=== PATIENT | female | born 1950 | race Caucasian/White ===

== ENCOUNTER 2016-11-10 11:22 | Outpatient (CLI) | payer MEDICARE, OTHER | END 2016-11-10 11:23 | disposition home or self-care (01) | DX: G47.33 Obstructive sleep apnea (adult) (pediatric) (principal) | CPT/HCPCS: 99213; G0463 ==

== ENCOUNTER 2017-06-03 08:43 | Day surgery (SDC) | payer MEDICARE, OTHER ==
[~2017-06-03 08:43] MED LIST: BRIMONIDINE 0.2% OPHTH DROPS 5 ML ONE; CYCLOPENTOLATE 1% OPHTH DROPS 2 ML ONE; KETOROLAC 0.45% OPHTH DROPS ONE; PHENYLEPHRINE 2.5% OPHTH 2 ML DROPS ONE; PROPARACAINE 0.5% OPHTH DROPS 15 ML ONE
[2017-06-03] MEDS ORDERED: LACTATED RINGERS 500 ML IV ONE (09:05)
[2017-06-03] MEDS ORDERED: PROPARACAINE 0.5% OPHTH DROPS 15 ML OPTH ONE ×2 (09:15→10:54)
[2017-06-03] MEDS ORDERED: PHENYLEPHRINE 2.5% OPHTH 2 ML DROPS OPTH ONE (09:15)
[2017-06-03] MEDS ORDERED: KETOROLAC 0.45% OPHTH DROPS OPTH ONE (09:15)
[2017-06-03] MEDS ORDERED: CYCLOPENTOLATE 1% OPHTH DROPS 2 ML OPTH ONE (09:15)
[2017-06-03] MEDS ORDERED: EPINEPHrine 1 MG/ML AMP IVP ONE (10:53)
[2017-06-03] MEDS ORDERED: BRIMONIDINE 0.2% OPHTH DROPS 5 ML OPTH ONE (10:53)
[2017-06-03] MEDS ORDERED: CHONDR SULF/HYALURONATE SYRINGE IO ONE (10:54)
[2017-06-03] MEDS ORDERED: BSS/LIDOCAINE/EPINEPHRINE 1 ML SYRINGE IO ONE ×2 (10:54)
[2017-06-03] MEDS ORDERED: TIMOLOL 0.5% OPHTH DROPS OPTH ONE (10:54)
[2017-06-03] MEDS ORDERED: TRIAMCIN/MOXIFLOX/VANCO 1 ML VIAL IO ONE ×2 (10:55)
[2017-06-03 11:40] VITALS: BP 132/82
--- NOTE | 2017-06-03 13:49 | OPERATIVE REPORT ---
DATE OF SURGERY: 06/03/2017 00:00:00 PREOPERATIVE DIAGNOSIS: Significant cataract, right eye. This is her first cataract surgery. POSTOPERATIVE DIAGNOSIS: Significant cataract, right eye. This is her first cataract surgery. NAME OF PROCEDURE: Phacoemulsification with posterior chamber intraocular lens implant, right eye. SURGEON: Madhu Adam M.D. ANESTHESIA: Monitored anesthesia care. COMPLICATIONS: None. OPERATIVE INDICATIONS: This is a 66-year-old woman with progressive vision loss in the right eye due to 2+ nuclear sclerotic and 2+ cortical cataract. Best corrected visual acuity was 20/25, unsure what the glare vision was - it was not recorded. Indications for surgery were overall decrease in vision, difficulty reading, difficulty seeing words, closed captions, or game scores on TV, difficulty seeing street signs, difficulty driving in low light or at night , difficulty driving at night because of headlights from other vehicles, and difficulty with bright lights or glare in any situation. She was consented at length concerning risks and benefits of cataracts, after which she expressed the desire to proceed with surgery. OPERATIVE PROCEDURE: The patient was taken into OR #2 and placed under monitored anesthesia care. A surgical time-out was conducted, confirming correct patient, correct procedure, and correct surgical site. She was given topical anesthesia and then prepped and draped in the usual sterile fashion. The eye was entered at the 12 and 9 o'clock positions. Intracameral Shugarcaine was injected into the anterior chamber followed by Viscoat. A continuous curvilinear capsulorrhexis was performed. The nucleus was hydrodissected and phacoemulsified. The cortex was evacuated using automated infusion and aspiration. Provisc was injected in the capsular bag, and a 09.0 diopter intraocular lens was inserted into the bag. Approximately 0.7 mL of a mixture of triamcinolone, moxifloxacin, and vancomycin was injected subconjunctivally in the superior quadrant for infection and inflammation prophylaxis. I and A was used to evacuate the viscoelastic material. The eye was inflated to physiologic pressure using balanced salt solution and found to be watertight. The patient was taken from the operating room in good condition and given postoperative instructions. JOB #: [id number] EXT JOB #:[id number] [facility]
== END 2017-06-03 08:44 | disposition home or self-care (01) ==
LOC: SDS 08:43
PROVIDERS: ATTEND Ophthalmology
PROC: 08RJ3JZ Replacement of Right Lens with Synthetic Substitute, Percutaneous Approach (ICD-10-PCS; principal; 2017-06-03 10:00)
DX: H25.811 Combined forms of age-related cataract, right eye (principal); E03.9 Hypothyroidism, unspecified; G47.33 Obstructive sleep apnea (adult) (pediatric); Z88.5 Allergy status to narcotic agent
CPT/HCPCS: 66984; A9270; J3490

== ENCOUNTER 2017-06-17 09:24 | Day surgery (SDC) | payer MEDICARE, OTHER ==
[~2017-06-17 09:24] MED LIST changes: +ACETYLCHOLINE 20 MG/2 ML KIT IO ONE; +TIMOLOL 0.5% OPHTH DROPS ONE; +TRIAMCINOLONE PF 40 MG/ML VIAL ONE
[2017-06-17] MEDS ORDERED: LACTATED RINGERS 500 ML IV ONE (09:32)
[2017-06-17] MEDS ORDERED: PROPARACAINE 0.5% OPHTH DROPS 15 ML OPTH ONE ×2 (09:35→10:21)
[2017-06-17] MEDS ORDERED: PHENYLEPHRINE 2.5% OPHTH 2 ML DROPS OPTH ONE (09:35)
[2017-06-17] MEDS ORDERED: CYCLOPENTOLATE 1% OPHTH DROPS 2 ML OPTH ONE (09:35)
[2017-06-17] MEDS ORDERED: KETOROLAC 0.45% OPHTH DROPS OPTH ONE (09:35)
[2017-06-17] MEDS ORDERED: BRIMONIDINE 0.2% OPHTH DROPS 5 ML OPTH ONE (10:21)
[2017-06-17] MEDS ORDERED: TIMOLOL 0.5% OPHTH DROPS OPTH ONE (10:21)
[2017-06-17] MEDS ORDERED: BSS/LIDOCAINE/EPINEPHRINE 1 ML SYRINGE IO ONE ×2 (10:21)
[2017-06-17] MEDS ORDERED: EPINEPHrine 1 MG/ML AMP IVP ONE (10:21)
[2017-06-17] MEDS ORDERED: CHONDR SULF/HYALURONATE SYRINGE IO ONE (10:21)
[2017-06-17] MEDS ORDERED: TRIAMCIN/MOXIFLOX/VANCO 1 ML VIAL IO ONE ×2 (10:21)
[2017-06-17] MEDS ORDERED: LIDOCAINE-MPF 2% 5 ML VIAL IM ONE (10:24)
[2017-06-17] MEDS ORDERED: PROPOFOL 200 MG/20 ML VIAL IVP ONE (10:24)
[2017-06-17] MEDS ORDERED: MIDAZOLAM 2 MG/2 ML VIAL IVP ONE (10:24)
[2017-06-17 11:08] VITALS: BP 133/71
--- NOTE | 2017-06-17 11:19 | OPERATIVE REPORT ---
DATE OF SURGERY: 06/17/2017 00:00:00 PREOPERATIVE DIAGNOSIS: Visually significant cataract, left eye. Cataract surgery was performed on right eye on 03 June 2017. POSTOPERATIVE DIAGNOSIS: Visually significant cataract, left eye. Cataract surgery was performed on t right eye on 03 June 2017. NAME OF PROCEDURE: Phacoemulsification with posterior chamber intraocular lens implant, left eye. SURGEON: Madhu Adam MD ANESTHESIA: Monitored anesthesia care. COMPLICATIONS: None. OPERATIVE INDICATIONS: This is a 66-year-old woman with progressive vision loss in the left eye due t o 2+ nuclear sclerotic and 2+ cortical cataract. Best corrected visual acuity was 20/25 with glare to 20/40 in the left eye. Indications for surgery were overall decrease in vision, difficulty seeing wo rds on a computer screen, difficulty reading, difficulty seeing street signs, difficulty driving in l ow light or at night, difficulty driving at night because of headlights from other vehicles, and diff iculty with glare or bright lights in any situation. She was consented at length concerning the risks and benefits of cataract surgery after which she expressed a desire to proceed with surgery. OPERATIVE PROCEDURE: The patient was taken into OR #2 and placed under monitored anesthesia care. A s urgical time-out was conducted confirming correct patient, correct procedure and correct surgical sit e. She was given topical anesthesia and then prepped and draped in the usual sterile fashion. The eye was entered at the 6- and 3 o'clock positions. Intracameral Shugarcaine was injected into the anteri or chamber followed by Viscoat. A continuous tear curvilinear capsulorrhexis was performed. The nucle us was hydrodissected and phacoemulsified. The cortex was evacuated using automated infusion and aspi ration. Provisc was injected in the capsular bag and a 10.0 diopter intraocular lens was inserted int o the bag. Approximately 0.7 mL of a mixture of triamcinolone, moxifloxacin, and vancomycin was injec jeffry subconjunctivally in the superior quadrant for infection and inflammation prophylaxis. I/A was us ed to evacuate the viscoelastic material. The eye was inflated to physiologic pressure using balanced salt solution and found to be watertight. The patient was taken from the operating room in good cond ition and given postoperative instructions. JOB #: [id number] EXT JOB #:[id number]
== END 2017-06-17 09:25 | disposition home or self-care (01) ==
LOC: SDS 09:24
PROVIDERS: ATTEND Ophthalmology
PROC: 08RK3JZ Replacement of Left Lens with Synthetic Substitute, Percutaneous Approach (ICD-10-PCS; principal; 2017-06-17 10:30)
DX: H25.812 Combined forms of age-related cataract, left eye (principal); E03.9 Hypothyroidism, unspecified; G47.33 Obstructive sleep apnea (adult) (pediatric); I10 Essential (primary) hypertension; Z88.5 Allergy status to narcotic agent
CPT/HCPCS: 66984; A9270; J3300; J3490; V2632

== ENCOUNTER 2017-07-20 09:30 | Outpatient (CLI) | payer MEDICARE, OTHER ==
[2017-07-20 10:09] LABS: ALBUMIN/GLOBULIN RATIO 1.2 (1.0-2.2); BILIRUBIN,TOTAL 0.9 mg/dL (0.2-1.0); BUN - BLOOD UREA NITROGEN 12 mg/dL (6-20); CALCIUM 9.2 mg/dL (8.5-10.3); CARBON DIOXIDE - CO2 27 mmol/L (21-32); CHLORIDE 102 mmol/L (101-111); CHOL/HDL RATIO 4.9 (<4.4); CHOLESTEROL 225 mg/dL; CREATININE 0.6 mg/dL (0.4-1.0); GFR - MDRD 100 (>89); GLUCOSE 111 mg/dL (70-100); HDL CHOLESTEROL 46 mg/dL; LDL/HDL RATIO 3.1 (<4.4); POTASSIUM 3.6 mmol/L (3.5-5.0); SODIUM 139 mmol/L (135-145); TOTAL PROTEIN 7.1 g/dL (6.7-8.2); TRIGLYCERIDES 181 mg/dL; VLDL CHOLESTEROL 36 mg/dL
== END 2017-07-20 09:31 | disposition home or self-care (01) ==
LOC: LAB 09:30
PROVIDERS: ATTEND Physician Assistant Medical
DX: E78.5 Hyperlipidemia, unspecified (principal); E03.9 Hypothyroidism, unspecified; Z51.81 Encounter for therapeutic drug level monitoring; Z79.899 Other long term (current) drug therapy
CPT/HCPCS: 36415; 80053; 80061; 84443

== ENCOUNTER 2017-07-20 09:49 | Outpatient (CLI) | payer MEDICARE, OTHER ==
--- NOTE | 2017-07-20 17:48 | XRAY Report ---
BILATERAL KNEES: 07/20/2017 HISTORY: Pain. COMPARISON: None. FINDINGS: LEFT KNEE: Soft tissue surgical clips. Equivocal degenerative narrowing of the medial knee joint. Lateral knee joint well maintained with early spurring. Patellofemoral degenerative change. No evid ence of fracture, malalignment, or joint effusion. RIGHT KNEE: Mild degenerative medial knee joint space narrowing with spurring. Mild lateral knee kemar int spurring. Spurring of the articular surface of the patella. No fracture, malalignment, joint ef fusion, or joint destruction. IMPRESSION: BILATERAL KNEE DEGENERATIVE CHANGE WITHOUT SUPERIMPOSED ACUTE FINDINGS. JOB #: [id number] EXT JOB #:[id number]
--- NOTE | 2017-07-20 17:51 | XRAY Report ---
LUMBAR SPINE, THREE VIEWS: 07/20/2017 HISTORY: Back pain. The lumbar vertebral bodies are normally aligned. There is mild height loss of T11, T12 and possibly L1. Remaining vertebral bodies height well maintained. There is scattered multilevel degenerative disk space narrowing most marked L4- 5 and L5-S1. Degenerative facet joint arthropathy is present, most marked lower lumbar levels. Surgical clips right upper quadrant. IMPRESSION: MULTILEVEL DEGENERATIVE CHANGE LUMBAR SPINE. LUMBAR SPINAL STENOSIS MAY BE PRESENT, BUT COULD BE BEST ASSESSED BY MRI. FINDINGS ARE SIMILAR TO THE REFORMATTED IMAGES OF THE CT SCAN ABDOMEN AND PELVIS FROM 08/06/2016. JOB #: [id number] EXT JOB #: [id number] [facility]
== END 2017-07-20 09:50 | disposition home or self-care (01) ==
LOC: DI 09:49
PROVIDERS: ATTEND Physician Assistant Medical
DX: M51.36 Other intervertebral disc degeneration, lumbar region (principal); E78.5 Hyperlipidemia, unspecified; E03.9 Hypothyroidism, unspecified; Z51.81 Encounter for therapeutic drug level monitoring; Z79.899 Other long term (current) drug therapy
CPT/HCPCS: 36415; 72100; 80053; 80061; 84443

== ENCOUNTER 2017-11-06 23:10 | Observation (INO) | payer MEDICARE, OTHER ==
[2017-11-06] MEDS ORDERED: ASPIRIN 325 MG TABLET PO STA (23:25)
[2017-11-06] MEDS ORDERED: NITROGLYCERIN SL 0.4 MG TABLET SL STA (23:25)
[2017-11-06 23:37] LABS: BASOPHILS # (AUTO) 0.1 10^3/uL (0.0-0.1); EOSINOPHILS # (AUTO) 0.3 10^3/uL (0.0-0.7); EOSINOPHILS % (AUTO) 2.9 %; HGB - HEMOGLOBIN 13.2 g/dL (12.0-16.0); LYMPHOCYTES # (AUTO) 4.2 10^3/uL (1.5-3.5); MEAN CORPUSCULAR HEMOGLOBIN 32.1 pg (27.0-31.0); MEAN CORPUSCULAR HGB CONC 34.1 g/dL (32.0-36.0); MEAN CORPUSCULAR VOLUME 94.1 fL (81.0-99.0); MEAN PLATELET VOLUME 7.6 fL (7.9-10.8); MONOCYTES # (AUTO) 0.9 10^3/uL (0.0-1.0); MONOCYTES % (AUTO) 10.2 %; NEUTROPHILS # (AUTO) 3.5 10^3/uL (1.5-6.6); NEUTROPHILS % (AUTO) 38.9 %; PLT - PLATELET COUNT 305 10^3/uL (130-450); RED BLOOD COUNT 4.13 10^6/uL (4.20-5.40); RED CELL DISTRIBUTION WIDTH 14.1 % (12.0-15.0); WHITE BLOOD COUNT 8.9 x10^3/uL (4.8-10.8)
[2017-11-06 23:49] LABS: ALBUMIN/GLOBULIN RATIO 1.3 (1.0-2.2); BILIRUBIN,TOTAL 0.3 mg/dL (0.2-1.0); CALCIUM 9.3 mg/dL (8.5-10.3); CREATININE 0.7 mg/dL (0.4-1.0); PHOSPHORUS 3.7 mg/dL (2.5-4.6); TOTAL PROTEIN 7.2 g/dL (6.7-8.2)
[2017-11-07] MEDS ORDERED: POTASSIUM CHLORIDE 20 MEQ TABLET PO STA (00:02)
[2017-11-07] MEDS ORDERED: POTASSIUM CHLOR 10 MEQ/100 ML 10 MEQ/100 ML BAG IV ONE (00:02)
--- NOTE | 2017-11-07 00:13 | XRAY Report ---
EXAM: CHEST RADIOGRAPHY EXAM DATE: 11/06/2017 11:56 PM. CLINICAL HISTORY: Fever, hx of lung failure. COMPARISON: None. TECHNIQUE: 1 view. FINDINGS: Lungs/Pleura: No focal opacities evident. No pleural effusion. No pneumothorax. Mediastinum: Within exam limitations, the cardiomediastinal contour is normal. Other: None. IMPRESSION: No acute cardiopulmonary abnormality. [facility] Referring Provider Line: [phone] SITE ID: [id number]
--- NOTE | 2017-11-07 00:33 | ED Physician Documentation ---
PD HPI CHEST PAIN - Stated complaint Stated Complaint: CHEST PAIN - Chief complaint Chief Complaint: Cardiac - History obtained from History obtained from: Patient, Family - History of Present Illness Timing - onset: Today Timing - onset during: Rest Timing - details: Abrupt onset, Still present Quality: Pressure Location: Left chest Radiation: Jaw, Neck Improved by: Rest Associated symptoms: Diaphoresis, Nausea, Vomiting. No: Shortness of air, Feeling faint / dizzy Similar symptoms before: No diagnosis, Has not had sx before Recently seen: Not recently seen - Additional information Additional information: Patient is a 67 year old female with a history of obesity, and fibromyalgia who is presenting to the emergency department for chest pain. Patient states that she was sitting on her couch when she developed left sided chest pain/pressure. Patient states that the pain radiated down her left arm and into her jaw. Patient was diaphoretic and nauseated with the pain. patient has never had these symptoms before. Review of Systems Constitutional: reports: Sweats. denies: Fever, Chills Eyes: denies: Decreased vision, Photophobia Ears: denies: Ear pain, Drainage/discharge Nose: denies: Congestion Throat: denies: Sore throat Cardiac: reports: Chest pain / pressure. denies: Palpitations Respiratory: denies: Cough, Wheezing GI: reports: Nausea, Vomiting : denies: Dysuria, Frequency Musculoskeletal: reports: Extremity pain. 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 - Present Medications Home Medications: Ambulatory Orders Medication Instructions Recorded Confirmed Acetaminophen [Tylenol Extra 1,000 mg PO Q6-8H PRN 04/18/13 11/07/17 Strength] Beta-Carotene(A) W-C & E/Zn/Se 1 each PO DAILY 04/18/13 11/07/17 [Antioxidant Tablet] Cholecalciferol (Vitamin D3) 8,000 unit PO DAILY 04/18/13 11/07/17 [Vitamin D3] Duloxetine HCl [Cymbalta] 30 mg PO DAILY 04/18/13 11/07/17 Ibuprofen [Motrin] 600 mg PO Q6H PRN 04/18/13 11/07/17 Levothyroxine Sodium [Levoxyl] 137 mcg PO DAILY 04/18/13 11/07/17 Magnesium 200 mg PO DAILY 04/18/13 11/07/17 Multivitamin [Multivitamins] 1 each PO DAILY 04/18/13 11/07/17 [place]-3 Fatty Acids/Fish Oil 1 each PO DAILY 04/18/13 11/07/17 [[place] 3 1,000 mg Softgel] Triamterene/Hydrochlorothiazid 37.5 each PO DAILY 04/18/13 11/07/17 [Triamterene-Hctz 37.5-25 mg Tb] Ubidecarenone [Coq-10] 200 mg PO DAILY 04/18/13 11/07/17 - Allergies Allergies/Adverse Reactions: Allergies Allergy/AdvReac Type Severity Reaction Status Date / Time codeine [Codeine] Allergy Intermediate Nausea Verified 11/06/17 23:17 - Social History Does the pt smoke?: No Smoking Status: Never smoker Does the pt drink ETOH?: No Does the pt have substance abuse?: No - Immunizations Immunizations are current?: Yes PD ED PE NORMAL - Vitals Vital signs reviewed: Yes - General General: Alert and oriented X 3, Well developed/nourished - HEENT HEENT: Atraumatic, Moist mucous membranes - Neck Neck: Supple, no meningeal sign, No JVD - Cardiac Cardiac: RRR, No murmur - Respiratory Respiratory: No respiratory distress, Clear bilaterally - Abdomen Abdomen: Soft, Non tender, Non distended - Derm Derm: Normal color - Extremities Extremities: No deformity, Normal ROM s pain, No calf tenderness / cord - Neuro Neuro: Alert and oriented X 3, No motor deficit, No sensory deficit, Normal speech Eye Opening: Spontaneous Motor: Obeys Commands Verbal: Oriented GCS Score: 15 PD ED PE EXPANDED - General General: Alert - Derm Derm: Diaphoretic Results - Vitals Vitals: Vital Signs - 24 hr 11/06/17 11/06/17 11/06/17 23:15 23:49 23:58 Temperature 367 C H Heart Rate 66 64 52 L Respiratory 20 18 18 Rate Blood Pressure 178/100 H 136/81 H 141/80 H O2 Saturation 97 100 100 11/07/17 11/07/17 00:12 00:51 Temperature Heart Rate 62 66 Respiratory 18 18 Rate Blood Pressure 118/65 156/91 H O2 Saturation 100 100 Oxygen O2 Source Room air - EKG (time done) 2321 Rate: Rate (enter#) (68) Rhythm: NSR [place]: LAD QRS: LVH, Poor R wave progression Ischemia: ST depression Compare to prior EKG: Old EKG unavailable - Labs Labs: Laboratory Tests 11/06/17 11/06/17 11/06/17 23:25 23:25 23:25 WBC 8.9 RBC 4.13 L Hgb 13.2 Hct 38.9 MCV 94.1 MCH 32.1 H MCHC 34.1 RDW 14.1 Plt Count 305 MPV 7.6 L Neut # 3.5 Lymph # 4.2 H [place] # 0.9 Eos # 0.3 Baso # 0.1 Absolute Nucleated RBC 0.01 Nucleated RBC % 0.1 Sodium 140 Potassium 2.9 L Chloride 100 L Carbon Dioxide 29 Anion Gap 11.0 BUN 16 Creatinine 0.7 Estimated GFR (MDRD) 83 L Glucose 125 H Calcium 9.3 Phosphorus 3.7 Magnesium 2.0 Total Bilirubin 0.3 AST 34 ALT 42 Alkaline Phosphatase 75 Troponin I < 0.04 B-Natriuretic Peptide Total Protein 7.2 Albumin 4.0 Globulin 3.2 Albumin/Globulin Ratio 1.3 Lipase 25 TSH 11/06/17 11/06/17 23:25 23:25 WBC RBC Hgb Hct MCV MCH MCHC RDW Plt Count MPV Neut # Lymph # [place] # Eos # Baso # Absolute Nucleated RBC Nucleated RBC % Sodium Potassium Chloride Carbon Dioxide Anion Gap BUN Creatinine Estimated GFR (MDRD) Glucose Calcium Phosphorus Magnesium Total Bilirubin AST ALT Alkaline Phosphatase Troponin I B-Natriuretic Peptide 52 Total Protein Albumin Globulin Albumin/Globulin Ratio Lipase TSH 4.04 - Rads (name of study) chest x-ray Radiology: Final report received (no acute abnormality) PD MEDICAL DECISION MAKING - ED course Complexity details: reviewed old records, reviewed results, re-evaluated patient , considered differential, d/w patient, d/w family, d/w otm consultant ED course: patient was seen and examined at bedside. IV access was gained, labs were drawn. ekg was performed and showed lvh and st depression. Patient was treated with the rest of the aspirin (161mg) nitro was ordered for the patient which helped the pain. Patient's HEART score was elevated at 5 and required further care. Hospitalist was contacted and the case was discussed with her. patient was placed in observation for further care. Departure - Departure Disposition: ED Place in Observation Clinical Impression: Chest pain Condition: Stable
[2017-11-07] MEDS ORDERED: NITROGLYCERIN 2% PASTE TOP STA (00:34)
[2017-11-07] MEDS ORDERED: SODIUM CHLORIDE FLUSH 0.9% 10 ML SYRINGE IVP PRN (00:38)
[2017-11-07] MEDS ORDERED: IBUPROFEN 600 MG TABLET PO PRN (00:38)
[2017-11-07] MEDS ORDERED: PROCHLORPERAZINE 10 MG/2 ML VIAL IVP PRN (00:38)
[2017-11-07] MEDS ORDERED: NITROGLYCERIN SL 0.4 MG TABLET SL PRN (00:43)
--- NOTE | 2017-11-07 00:48 | HISTORY & PHYSICAL EXAMINATION ---
Chief Complaint - Chief Complaint Chief Complaint: Chest pain History of Present Illness - Admitted From Admitted From:: Home - History of Present Illness HPI Comment/Other: Ms. Marcia Epstein is a very pleasant 67-year-old femaleWho began to experience left chest pain with radiation to the arm and jaw earlier this evening.Ms. Epstein also experienced nausea and vomiting as well as diaphoresis.Her [facility] and she wasWorkup for an acute myocardial infarction. Fortunately the workup has been negative thus far but given the patient's history and presenting complaints it is felt that it would be prudent to observe her for the next 24 hours. 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 - Family & Social History Family History: Mother: , CAD, Hyperlipidemia, Hypertension, [place], PVD/PAD , Father: , CAD, Hyperlipidemia, Hypertension, SD, Brother: , CAD, Hyperlipidemia, Hypertension, SD Living arrangement: At home Living Situation: With family - Substance History Use: Uses substance without health or social issues: Alcohol Abuse: Recurrent use of substance despite neg consequences: NONE Dependence: Experiences withdrawal or developed tolerances: NONE - POLST Patient has POLST: No POLST Status: Full Code Meds/Allgy - Home Medications Home Medications: Ambulatory Orders Medication Instructions Recorded Confirmed Acetaminophen [Tylenol Extra 1,000 mg PO Q6-8H PRN 04/18/13 06/17/17 Strength] Beta-Carotene(A) W-C & E/Zn/Se 1 each PO DAILY 04/18/13 06/17/17 [Antioxidant Tablet] Cholecalciferol (Vitamin D3) 8,000 unit PO DAILY 04/18/13 06/17/17 [Vitamin D3] Duloxetine HCl [Cymbalta] 30 mg PO DAILY 04/18/13 06/16/17 Ibuprofen [Motrin] 600 mg PO Q6H PRN 04/18/13 06/16/17 Levothyroxine Sodium [Levoxyl] 137 mcg PO DAILY 04/18/13 06/17/17 Magnesium 200 mg PO DAILY 04/18/13 06/17/17 Multivitamin [Multivitamins] 1 each PO DAILY 04/18/13 06/17/17 [place]-3 Fatty Acids/Fish Oil 1 each PO DAILY 04/18/13 06/17/17 [[place] 3 1,000 mg Softgel] Triamterene/Hydrochlorothiazid 37.5 each PO DAILY 04/18/13 06/17/17 [Triamterene-Hctz 37.5-25 mg Tb] Ubidecarenone [Coq-10] 200 mg PO DAILY 04/18/13 06/17/17 - Allergies Allergies/Adverse Reactions: Allergies Allergy/AdvReac Type Severity Reaction Status Date / Time codeine [Codeine] Allergy Intermediate Nausea Verified 11/06/17 23:17 Review of Systems - Constitutional Constitutional: denies: Fatigue, Fever, Chills, Malaise - Eyes Eyes: denies: Pain, Irritation, Blurred vision - Ears, Nose & Throat Ears, Nose & Throat: denies: Ear pain, Hearing loss, Tinnitus, Vertigo, Nasal discharge - Cardiovascular Cariovascular: reports: Chest pain. denies: Irregular heart rate, Palpitations , Edema, Lightheadedness, Syncope, Exertional dyspnea, Orthopnea - Respiratory Respiratory: denies: Cough, Sputum production, Wheezing, Hemoptysis, SOB at rest - Gastrointestinal Gastrointestinal: denies: Abdominal pain, Abdominal distention, Constipation, Diarrhea, Rectal bleeding - Genitourinary Genitourinary: denies: Dysuria, Frequency, Urgency, Hematuria - Musculoskeletal Musculoskeletal: denies: Muscle pain, Back pain, Muscle aches, Stiffness - Integumentary Integumentary: denies: Rash, Pruritis, Lesions, Dryness - Neurological Neurological: denies: General weakness, Focal weakness, Headache, Dizziness - Psychiatric Psychiatric: denies: Depression, Anxiety, Suicidal, Hallucinations - Endocrine Endocrine: denies: Polyuria, Polydypsia, Polyphagia - Hematologic/Lymphatic Hematologic/Lymphatic: denies: Anemia, Bruising, Petechiae, Blood clots, Lymphadenopathy - All Other Systems All Other Systems: reports: Reviewed and negative Exam - Vital Signs Reviewed Vital Signs: Yes Vital Signs: Vital Signs x48h Temp Pulse Resp BP Pulse Ox 11/07/17 00:12 62 18 118/65 100 11/06/17 23:58 52 L 18 141/80 H 100 11/06/17 23:49 64 18 136/81 H 100 11/06/17 23:15 367 C H 66 20 178/100 H 97 - Physical Exam General Appearance: positive: No acute distress, Alert Eyes Bilateral: positive: Normal inspection, PERRL, EOMI ENT: positive: ENT inspection nml, Pharynx nml, No signs of dehydration. negative: Purulent nasal drainage, Oral lesions Neck: positive: Nml inspection, Thyroid nml, No JVD, Trachea midline. negative : Thyromegaly Respiratory: positive: Chest non-tender, No respiratory distress, Breath sounds nml Cardiovascular: positive: Regular rate & rhythm, No murmur, No gallop Peripheral Pulses: positive: 1+ Abdomen: positive: Non-tender, No organomegaly, Nml bowel sounds, No distention. negative: Guarding, Rebound Back: positive: Nml inspection. negative: CVA tenderness (R), CVA tenderness (L ) Skin: positive: Color nml, No rash, Warm, Dry. negative: Cyanosis Extremities: positive: Non-tender, Full ROM, Nml appearance Neurologic/Psychiatric: positive: Oriented x3, CN's nml (2-12), Motor nml, Sensation nml, Mood/affect nml Conclusion/Plan - Problem List (1) Chest pain Conclusion/Plan: We will admit the patient to an observation bed and continue with the serial troponin checks. The first set was less than 0.04.We will give the patient supplemental oxygen and monitor on telemetry.We will give her nitrates for chest pain as needed. - Lab Results Lab results reviewed: Yes Fish Bones: 11/06/17 23:25 11/06/17 23:25 - Diagnostic Imaging Results Diagnostic Imaging Results: positive: Final report reviewed Diagnostic Imaging Results Comments: EXAM: CHEST RADIOGRAPHY EXAM DATE: 11/06/2017 11:56 PM. CLINICAL HISTORY: Fever, hx of lung failure. COMPARISON: None. TECHNIQUE: 1 view. FINDINGS: Lungs/Pleura: No focal opacities evident. No pleural effusion. No pneumothorax. Mediastinum: Within exam limitations, the cardiomediastinal contour is normal. Other: None. IMPRESSION: No acute cardiopulmonary abnormality. Core Measures - Anticipated LOS I expect patient to be DC'd or transferred within 96 hours.: Yes - DVT/VTE - Prophylaxis VTE/DVT Device ordered at admit?: Yes - AMI - Statin at Admit Aspirin Prescribed on Admit: Yes
[2017-11-07 05:50] LABS: CALCIUM 8.7 mg/dL (8.5-10.3); CREATININE 0.5 mg/dL (0.4-1.0)
[2017-11-07] MEDS ORDERED: SODIUM CHLORIDE FLUSH 0.9% 10 ML SYRINGE IVP SCH (06:00)
[2017-11-07 06:01] LABS: CHOL/HDL RATIO 4.4 (<4.4); CHOLESTEROL 207 mg/dL; HDL CHOLESTEROL 47 mg/dL; LDL CHOLESTEROL,CALCULATED 143 mg/dL; VLDL CHOLESTEROL 17 mg/dL
[2017-11-07] MEDS ORDERED: CLOPIDOGREL 300 MG TABLET PO ONE (06:19)
[2017-11-07 06:30] LABS: HGB - HEMOGLOBIN 12.1 g/dL (12.0-16.0); MEAN CORPUSCULAR HEMOGLOBIN 32.3 pg (27.0-31.0); MEAN CORPUSCULAR HGB CONC 34.3 g/dL (32.0-36.0); MEAN CORPUSCULAR VOLUME 94.4 fL (81.0-99.0); MEAN PLATELET VOLUME 7.7 fL (7.9-10.8); RED BLOOD COUNT 3.75 10^6/uL (4.20-5.40); RED CELL DISTRIBUTION WIDTH 13.9 % (12.0-15.0); WHITE BLOOD COUNT 8.5 x10^3/uL (4.8-10.8)
[2017-11-07] MEDS ORDERED: HEPARIN 25,000 UNITS/500 ML NS 25,000 UNIT/500 ML BAG IV SCH (07:00)
[2017-11-07] MEDS ORDERED: LEVOTHYROXINE 25 MCG TABLET PO SCH (07:00)
[2017-11-07] MEDS ORDERED: LEVOTHYROXINE 112 MCG TABLET PO SCH (07:00)
[2017-11-07] MEDS ORDERED: HEPARIN 5,000 UNIT/ML VIAL ONE (07:09)
[2017-11-07] MEDS ORDERED: CLOPIDOGREL 75 MG TABLET ONE (07:09)
[2017-11-07] MEDS ORDERED: ACETAMINOPHEN 325 MG TABLET PO PRN (07:25)
--- NOTE | 2017-11-07 07:59 | Discharge Plan ---
Discharge Plan Disposition: 02 Transfer Acute Care Hosp Condition: Poor Diet: Cardiac Activity Restrictions: Bedrest Weight Bearing: Full Weight Additional Instructions or Follow Up instructions: You had an NSTEMI and will be transferred to [facility] in [place] so you can be seen by a clinic receptionist. No Smoking: If you smoke, Please STOP! Call for help. Follow-up with: Sarah Shrestha PA-C [Primary Care Provider] -
[2017-11-07] MEDS ORDERED: METOPROLOL TARTRATE 25 MG TABLET PO SCH (08:00)
[2017-11-07] MEDS ORDERED: POTASSIUM CHLORIDE 20 MEQ TABLET PO SCH (08:00)
--- NOTE | 2017-11-07 08:13 | DISCHARGE SUMMARY ---
Discharge Summary Admit Date: 11/07/17 Discharge Date: 11/07/17 (Accepting physician: Dr Martin Hospitalist and Dr Harp Marketing Communications Assistant) Discharging Provider: Manny Varma MD Primary Care Provider: Sarah Shrestha Code Status: Attempt Resuscitation Condition at Discharge: Poor Discharge Disposition: 02 Transfer Acute Care Hosp Discharge Facility Name: [facility] in [place] - Accepting physician: Dr. Hou - DIAGNOSES Admission Diagnoses: 1. Chest pain 2. Hyperlipidemia 3. Hypothyroidism Discharge Diagnoses with Status of Each Condition: 1. Non-ST elevation HI 2. Hyperlipidemia 3. Hypothyroidism 4. Obesity - HPI History of Present Illness: Ms. Marcia Epstein is a very pleasant 67-year-old femaleWho began to experience left chest pain with radiation to the arm and jaw earlier this evening.Ms. Epstein also experienced nausea and vomiting as well as diaphoresis.Her family brought her to the emergency room at [facility] and she wasWorkup for an acute myocardial infarction. Fortunately the workup has been negative thus far but given the patient's history and presenting complaints it is felt that it would be prudent to observe her for the next 24 hours. - HOSPITAL COURSE Hospital Course: Patient did not have any further episodes of chest pain after placement in observation. Her chest pain resolved with nitroglycerin initially. The patient 's initial troponin was less than 0.04 but repeat troponin at 05:09 was 1.12. The patient did not have chest pain at that time however EKG was repeated and showed changes. Initial EKG showed upright T waves in the anterior leads these T waves had now flipped there was still no ST elevations or depressions. The patient was transferred to [facility] in [place] the accepting architectural coating finisher was Dr. Harp and the accepting hospitalist was Dr. Hou. The patient was given 1 dose of Plavix 300 mg and started on a heparin drip for non- ST elevation HI. Patient was also started on metoprolol, she had received aspirin in the emergency department and had received a dose of Lipitor. The patient was in stable condition at the time of discharge - ALLERGIES Allergies/Adverse Reactions: Allergies Allergy/AdvReac Type Severity Reaction Status Date / Time codeine [Codeine] Allergy Intermediate Nausea Verified 11/06/17 23:17 lactose AdvReac Cramps Verified 11/07/17 02:31 - MEDICATIONS Home Medications: Ambulatory Orders Medication Instructions Recorded Confirmed Acetaminophen [Tylenol Extra 1,000 mg PO Q6-8H PRN 04/18/13 11/07/17 Strength] Beta-Carotene(A) W-C & E/Zn/Se 1 each PO DAILY 04/18/13 11/07/17 [Antioxidant Tablet] Cholecalciferol (Vitamin D3) 8,000 unit PO DAILY 04/18/13 11/07/17 [Vitamin D3] Duloxetine HCl [Cymbalta] 30 mg PO DAILY 04/18/13 11/07/17 Ibuprofen [Motrin] 600 mg PO Q6H PRN 04/18/13 11/07/17 Levothyroxine Sodium [Levoxyl] 137 mcg PO DAILY 04/18/13 11/07/17 Magnesium 200 mg PO DAILY 04/18/13 11/07/17 Multivitamin [Multivitamins] 1 each PO DAILY 04/18/13 11/07/17 [place]-3 Fatty Acids/Fish Oil 1 each PO DAILY 04/18/13 11/07/17 [[place] 3 1,000 mg Softgel] Triamterene/Hydrochlorothiazid 37.5 each PO DAILY 04/18/13 11/07/17 [Triamterene-Hctz 37.5-25 mg Tb] Ubidecarenone [Coq-10] 200 mg PO DAILY 04/18/13 11/07/17 Acetaminophen [Tylenol] 650 mg PO Q4HR PRN tablet 11/07/17 Atorvastatin [Lipitor] 20 mg PO DAILY tablet 11/07/17 Levothyroxine [Synthroid] 25 mcg PO QDAC tablet 11/07/17 Levothyroxine [Synthroid] 112 mcg PO QDAC tablet 11/07/17 Metoprolol Tartrate [Lopressor] 25 mg PO BID tablet 11/07/17 Nitroglycerin [Nitrostat] 0.4 mg SL Q5MIN PRN tablet 11/07/17 - PHYSICAL EXAM AT DISCHARGE General Appearance: positive: No acute distress, Alert Eyes Bilateral: positive: Normal inspection, PERRL, EOMI, No lid inflammation, Conjunctivae nml, No scleral icterus ENT: positive: ENT inspection nml, Pharynx nml, No signs of dehydration. negative: Purulent nasal drainage, Pharyngeal erythema, Oral lesions Neck: positive: Nml inspection, Thyroid nml, No JVD, Trachea midline. negative : Lymphadenopathy (R), Lymphadenopathy (L), Stiff neck, Carotid bruit, Tracheal deviation Respiratory: positive: Chest non-tender, No respiratory distress, Breath sounds nml. negative: Wheezes, Rales, Rhonchi Cardiovascular: positive: Regular rate & rhythm, No murmur, No gallop Peripheral Pulses: positive: 2+ Abdomen: positive: Non-tender, No organomegaly, Nml bowel sounds, No distention. negative: Guarding, Rebound, Hepatomegaly Back: positive: Nml inspection. negative: CVA tenderness (R), CVA tenderness (L ) Skin: positive: Color nml, No rash, Warm. negative: Cyanosis, Pallor Extremities: positive: Non-tender, Full ROM, Nml appearance, No pedal edema Neurologic/Psychiatric: positive: Oriented x3, CN's nml (2-12), Motor nml, Sensation nml, Mood/affect nml - LABS Result Diagrams: 11/07/17 05:09 11/07/17 05:09 Other Lab Results: Laboratory Results WBC 8.5 x10^3/uL (4.8-10.8) 11/07/17 05:09 RBC 3.75 10^6/uL (4.20-5.40) L 11/07/17 05:09 Hgb 12.1 g/dL (12.0-16.0) 11/07/17 05:09 Hct 35.4 % (37.0-47.0) L 11/07/17 05:09 MCV 94.4 fL (81.0-99.0) 11/07/17 05:09 MCH 32.3 pg (27.0-31.0) H 11/07/17 05:09 MCHC 34.3 g/dL (32.0-36.0) 11/07/17 05:09 RDW 13.9 % (12.0-15.0) 11/07/17 05:09 Plt Count 270 10^3/uL (130-450) 11/07/17 05:09 MPV 7.7 fL (7.9-10.8) L 11/07/17 05:09 Neut # 3.5 10^3/uL (1.5-6.6) 11/06/17 23:25 Lymph # 4.2 10^3/uL (1.5-3.5) H 11/06/17 23:25 Bremer # 0.9 10^3/uL (0.0-1.0) 11/06/17 23:25 Eos # 0.3 10^3/uL (0.0-0.7) 11/06/17 23:25 Baso # 0.1 10^3/uL (0.0-0.1) 11/06/17 23:25 Absolute Nucleated RBC 0.01 x10^3/uL 11/06/17 23:25 Nucleated RBC % 0.1 /100WBC 11/06/17 23:25 Anti-Xa Level 0.0 U/mL (-0.7) 11/07/17 06:38 Sodium 139 mmol/L (135-145) 11/07/17 05:09 Potassium 3.6 mmol/L (3.5-5.0) 11/07/17 05:09 Chloride 104 mmol/L (101-111) 11/07/17 05:09 Carbon Dioxide 33 mmol/L (21-32) H 11/07/17 05:09 Anion Gap 2.0 (6-13) L 11/07/17 05:09 BUN 15 mg/dL (6-20) 11/07/17 05:09 Creatinine 0.5 mg/dL (0.4-1.0) 11/07/17 05:09 Estimated GFR (MDRD) 123 (>89) 11/07/17 05:09 Glucose 124 mg/dL (70-100) H 11/07/17 05:09 Calcium 8.7 mg/dL (8.5-10.3) 11/07/17 05:09 Phosphorus 3.7 mg/dL (2.5-4.6) 11/06/17 23:25 Magnesium 2.0 mg/dL (1.7-2.8) 11/06/17 23:25 Total Bilirubin 0.3 mg/dL (0.2-1.0) 11/06/17 23:25 AST 34 IU/L (10-42) 11/06/17 23:25 ALT 42 IU/L (10-60) 11/06/17 23:25 Alkaline Phosphatase 75 IU/L (42-121) 11/06/17 23:25 Troponin I 1.12 ng/mL (<0.49) H* 11/07/17 05:09 B-Natriuretic Peptide 73 pg/mL (5-100) 11/07/17 05:09 Total Protein 7.2 g/dL (6.7-8.2) 11/06/17 23:25 Albumin 4.0 g/dL (3.2-5.5) 11/06/17 23:25 Globulin 3.2 g/dL (2.1-4.2) 11/06/17 23:25 Albumin/Globulin Ratio 1.3 (1.0-2.2) 11/06/17 23:25 Triglycerides 84 mg/dL (-149) 11/07/17 05:09 Cholesterol 207 mg/dL (-199) H 11/07/17 05:09 LDL Cholesterol, Calc 143 mg/dL (-129) H 11/07/17 05:09 VLDL Cholesterol 17 mg/dL 11/07/17 05:09 HDL Cholesterol 47 mg/dL (60-) L 11/07/17 05:09 LDL/HDL Ratio 3.0 (<4.4) 11/07/17 05:09 Cholesterol/HDL Ratio 4.4 (<4.4) 11/07/17 05:09 Lipase 25 U/L (22-51) 11/06/17 23:25 TSH 4.04 uIU/mL (0.34-5.60) 11/06/17 23:25 - DIAGNOSTIC IMAGING Diagnostic Imaging Results: Final report reviewed Diagnostic Imaging Results Comments: Chest x-ray Impression: No acute cardiopulmonary abnormality. - FOLLOW UP Follow Up: Patient was transferred to [facility] in [place] for non-ST elevation HI. - TIME SPENT Time Spent in Discharge (Minutes): 45 (FAX TO PCP)
[2017-11-07 08:35] VITALS: BP 137/79
[2017-11-07] MEDS ORDERED: POLYETHYLENE GLYCOL 3350 17 GM PACKET PO SCH (09:00)
[2017-11-07] MEDS ORDERED: [UNRECOGNIZED DRUG - OTHER] PO SCH (09:00)
[2017-11-07] MEDS ORDERED: DULoxetine 30 MG CAPSULE PO SCH (09:00)
[2017-11-07] MEDS ORDERED: UBIDECARENONE 200 MG PO SCH (09:00)
[2017-11-07] MEDS ORDERED: TRIAMT/HCTZ 37.5 MG/25 MG CAPSULE PO SCH (09:00)
[2017-11-07] MEDS ORDERED: LEVOTHYROXINE SODIUM 137 MCG PO SCH (09:00)
[2017-11-07] MEDS ORDERED: ATORVASTATIN 10 MG TABLET PO SCH (09:00)
== END 2017-11-07 08:35 | disposition short-term general hospital (02) ==
LOC: ED 23:10 → OBS 11-07 00:38
PROVIDERS: ADMIT Hospitalist; ATTEND Internal Medicine
DX: I21.4 Non-ST elevation (NSTEMI) myocardial infarction (principal); E78.5 Hyperlipidemia, unspecified; E03.9 Hypothyroidism, unspecified; E66.9 Obesity, unspecified; I10 Essential (primary) hypertension; M79.7 Fibromyalgia; F32.9 Major depressive disorder, single episode, unspecified; G47.30 Sleep apnea, unspecified; Z68.39 Body mass index [BMI] 39.0-39.9, adult
CPT/HCPCS: 36415; 71045; 80048; 80053; 80061; 83690; 83735; 83880; 84100; 84443; 84484; 85025; 85027; 85520; 93005; 96365; 96366; 96372; 99284; 99285; A9270; G0378

== ENCOUNTER 2017-11-07 08:43 | Outpatient (CLI) | payer MEDICARE, OTHER | END 2017-11-07 08:44 | disposition critical access hospital (66) | LOC: EMS 08:43 | PROVIDERS: ATTEND Surgery | DX: I21.4 Non-ST elevation (NSTEMI) myocardial infarction (principal) | CPT/HCPCS: A0170; A0425; A0427 ==

== ENCOUNTER 2017-11-18 10:26 | Outpatient (CLI) | payer MEDICARE, OTHER ==
[2017-11-18 19:25] LABS: BASOPHILS # (AUTO) 0.1 10^3/uL (0.0-0.1); BASOPHILS % (AUTO) 1.2 %; EOSINOPHILS # (AUTO) 0.1 10^3/uL (0.0-0.7); EOSINOPHILS % (AUTO) 1.4 %; HGB - HEMOGLOBIN 13.7 g/dL (12.0-16.0); LYMPHOCYTES # (AUTO) 1.6 10^3/uL (1.5-3.5); LYMPHOCYTES % (AUTO) 23.4 %; MEAN CORPUSCULAR HEMOGLOBIN 31.6 pg (27.0-31.0); MEAN CORPUSCULAR HGB CONC 33.4 g/dL (32.0-36.0); MEAN CORPUSCULAR VOLUME 94.6 fL (81.0-99.0); MONOCYTES # (AUTO) 0.7 10^3/uL (0.0-1.0); NEUTROPHILS # (AUTO) 4.4 10^3/uL (1.5-6.6); PLT - PLATELET COUNT 340 10^3/uL (130-450); RED BLOOD COUNT 4.35 10^6/uL (4.20-5.40); WHITE BLOOD COUNT 6.9 x10^3/uL (4.8-10.8)
[2017-11-18 19:33] LABS: ALBUMIN 4.1 g/dL (3.2-5.5); ALBUMIN/GLOBULIN RATIO 1.2 (1.0-2.2); ALKALINE PHOSPHATASE 67 IU/L (42-121); ALT ALANINE AMINOTRANSFERASE 43 IU/L (10-60); AST ASPARTATE AMINOTRANSFERASE 35 IU/L (10-42); BILIRUBIN,TOTAL 0.6 mg/dL (0.2-1.0); BUN - BLOOD UREA NITROGEN 14 mg/dL (6-20); CALCIUM 9.4 mg/dL (8.5-10.3); CARBON DIOXIDE - CO2 27 mmol/L (21-32); CHLORIDE 101 mmol/L (101-111); CREATININE 0.6 mg/dL (0.4-1.0); GFR - MDRD 100 (>89); GLUCOSE 100 mg/dL (70-100); SODIUM 137 mmol/L (135-145); TOTAL PROTEIN 7.5 g/dL (6.7-8.2)
[2017-11-18 19:47] LABS: THYROID STIMULATING HORMONE 0.27 uIU/mL (0.34-5.60)
[2017-11-18 21:35] LABS: FREE T4 (FREE THYROXINE) 1.17 ng/dL (0.58-1.64)
== END 2017-11-18 10:27 | disposition home or self-care (01) ==
LOC: LAB.WCP 10:26
PROVIDERS: ATTEND Physician Assistant Medical
DX: I25.10 Atherosclerotic heart disease of native coronary artery without angina pectoris (principal); E03.9 Hypothyroidism, unspecified; R53.83 Other fatigue
CPT/HCPCS: 36415; 80053; 84439; 84443; 85025

== ENCOUNTER 2017-12-08 16:34 | Emergency (ER) | payer MEDICARE, OTHER ==
--- NOTE | 2017-12-08 17:48 | ED Physician Documentation ---
History of Present Illness - Stated complaint Stated Complaint: RT LEG LUMP/FALL - Chief complaint Chief Complaint: Ext Problem - Additonal information Additional information: hx from pt 67 f newly on effient after cardiac stent was carrying laundry, tripped over one and then the other floor jakob and fell landing upright on her right side injuring her right leg did not hit her head no headache no neck pain has focal hematoma to lateral right thigh and so came to ER as directed Review of Systems Musculoskeletal: reports: Extremity swelling. denies: Neck pain Neurologic: denies: Headache, Head injury Endocrine: reports: Easy bruising / bleeding PD PAST MEDICAL HISTORY - Past Medical History Cardiovascular: Hypertension, [place] Respiratory: None, Sleep apnea, CPAP use Neuro: None Endocrine/Autoimmune: HyPOthyroidism GI: None : None HEENT: None Psych: Depression Musculoskeletal: Fibromyalgia Derm: None - Past Surgical History Past Surgical History: Yes General: Cholecystectomy, Other /REPA[employer]ER [employer]: Tubal ligation Cardiovascular: Coronary stent - Present Medications Home Medications: Ambulatory Orders Medication Instructions Recorded Confirmed Acetaminophen [Tylenol Extra 1,000 mg PO Q6-8H PRN 04/18/13 11/07/17 Strength] Beta-Carotene(A) W-C & E/Zn/Se 1 each PO DAILY 04/18/13 11/07/17 [Antioxidant Tablet] Cholecalciferol (Vitamin D3) 8,000 unit PO DAILY 04/18/13 11/07/17 [Vitamin D3] Duloxetine HCl [Cymbalta] 30 mg PO DAILY 04/18/13 11/07/17 Ibuprofen [Motrin] 600 mg PO Q6H PRN 04/18/13 11/07/17 Levothyroxine Sodium [Levoxyl] 137 mcg PO DAILY 04/18/13 11/07/17 Multivitamin [Multivitamins] 1 each PO DAILY 04/18/13 11/07/17 [place]-3 Fatty Acids/Fish Oil 1 each PO DAILY 04/18/13 11/07/17 [[place] 3 1,000 mg Softgel] Triamterene/Hydrochlorothiazid 37.5 each PO DAILY 04/18/13 11/07/17 [Triamterene-Hctz 37.5-25 mg Tb] Ubidecarenone [Coq-10] 200 mg PO DAILY 04/18/13 11/07/17 Acetaminophen [Tylenol] 650 mg PO Q4HR PRN tablet 11/07/17 Atorvastatin [Lipitor] 20 mg PO DAILY tablet 11/07/17 Levothyroxine [Synthroid] 25 mcg PO QDAC tablet 11/07/17 Levothyroxine [Synthroid] 112 mcg PO QDAC tablet 11/07/17 Metoprolol Tartrate [Lopressor] 25 mg PO BID tablet 11/07/17 Nitroglycerin [Nitrostat] 0.4 mg SL Q5MIN PRN tablet 11/07/17 Prasugrel HCl [Effient] DAILY 12/08/17 - Allergies Allergies/Adverse Reactions: Allergies Allergy/AdvReac Type Severity Reaction Status Date / Time codeine [Codeine] Allergy Intermediate Nausea Verified 11/06/17 23:17 lactose AdvReac Cramps Verified 11/07/17 02:31 - Social History Does the pt smoke?: No Smoking Status: Never smoker Does the pt drink ETOH?: No Does the pt have substance abuse?: No - Immunizations Immunizations are current?: Yes - POLST Patient has POLST: No POLST Status: Full Code PD ED PE NORMAL - Vitals Vital signs reviewed: Yes - General General: Alert and oriented X 3 - HEENT HEENT: Atraumatic - Neck Neck: No bony TTP - Cardiac Cardiac: RRR - Respiratory Respiratory: No respiratory distress, Clear bilaterally - Extremities Extremities: Other (RLE : hip femur knee tib fib TP, ST bruising along lateral aspect most prom with focal duck egg sized hematoma to mid/distal lat thigh, is depp (not purple and bulging on the surface), knee s laxity, MSV intact) Results - Vitals Vitals: Vital Signs - 24 hr 12/08/17 16:40 Temperature 36.2 C L Heart Rate 70 Respiratory 16 Rate Blood Pressure 137/87 H O2 Saturation 100 Oxygen O2 Source Room air PD MEDICAL DECISION MAKING - ED course ED course: ST hematoma on effient advised pt is is small and deep to skin and don't rec drainage rec pressure dressing and ice return if worse Departure - Departure Disposition: 01 Home, Self Care Clinical Impression: Hematoma Condition: Good Instructions: ED Hematoma Follow-Up: Sarah Shrestha PA-C [Primary Care Provider] - Comments: Please keep the ZULEIKA wrap on for two days to keep pressure on the site and prevent the hematoma from enlarging Applying ice for 30 minutes every 4 hr will help too. If the swelling gets worse please come back for a recheck You didn't hit your head and don't have a headache thankfully. But if you develop a headache later, please come back for that too
[2017-12-08 18:16] VITALS: BP 152/78
== END 2017-12-08 18:18 | disposition home or self-care (01) ==
LOC: ED 16:34
DX: S80.11XA Contusion of right lower leg, initial encounter (principal); W01.198A Fall on same level from slipping, tripping and stumbling with subsequent striking against other object, initial encounter; I10 Essential (primary) hypertension; I25.2 Old myocardial infarction; E03.9 Hypothyroidism, unspecified; Z95.5 Presence of coronary angioplasty implant and graft; Z79.01 Long term (current) use of anticoagulants
CPT/HCPCS: 99282; 99283

== ENCOUNTER 2017-12-17 14:34 | Outpatient (CLI) | payer MEDICARE, OTHER ==
[2017-12-17 14:55] LABS: CALCIUM 9.7 mg/dL (8.5-10.3); CREATININE 0.7 mg/dL (0.4-1.0)
== END 2017-12-17 14:35 | disposition home or self-care (01) ==
LOC: LAB 14:34
PROVIDERS: ATTEND Nurse Practitioner Acute Care
DX: R60.0 Localized edema (principal)
CPT/HCPCS: 36415; 80048

== ENCOUNTER 2017-12-23 11:05 | Outpatient (CLI) | payer MEDICARE, OTHER ==
--- NOTE | 2017-12-24 13:22 | Mammography Report ---
DIGITAL SCREENING MAMMOGRAM: 12/23/2017 CLINICAL INDICATION: A 67-year-old, for screening. COMPARISON: 08/2016, 08/2015, 09/2013, 04/2012, 04/2011, 04/2010. TECHNIQUE: Routine CC and MLO projections were obtained of the breasts. FINDINGS: The breasts demonstrate scattered fibroglandular densities bilaterally. Coarse and punctate, typically benign calcifications are present. No suspicious masses, clustered microcalcifications, or regions of architectural distortion are identified. IMPRESSION: BENIGN FINDINGS. RECOMMENDATION: ROUTINE ANNUAL SCREENING UNLESS OTHERWISE CLINICALLY INDICATED. BIRADS CATEGORY 2-BENIGN FINDINGS. STANDARD QUALIFYING STATEMENTS: 1. This examination was reviewed with the aid of Computer-Aided Detection (CAD). 2. A negative or benign imaging report should not delay biopsy if clinically suspicious findings are present. Consider surgical consultation if warranted. More than 5% of cancers are not identified by imaging. 3. Dense breasts may obscure an underlying neoplasm. TD: 12/24/2017 13:22
== END 2017-12-23 11:06 | disposition home or self-care (01) ==
LOC: DI 11:05
PROVIDERS: ATTEND Physician Assistant Medical
DX: Z12.31 Encounter for screening mammogram for malignant neoplasm of breast (principal)
CPT/HCPCS: 77067

== ENCOUNTER 2018-01-27 08:37 | Outpatient (CLI) | payer MEDICARE, OTHER ==
[2018-01-27 09:38] LABS: ALBUMIN 3.8 g/dL (3.2-5.5); ALBUMIN/GLOBULIN RATIO 1.3 (1.0-2.2); ALKALINE PHOSPHATASE 74 IU/L (42-121); ALT ALANINE AMINOTRANSFERASE 28 IU/L (10-60); AST ASPARTATE AMINOTRANSFERASE 26 IU/L (10-42); BILIRUBIN,TOTAL 0.7 mg/dL (0.2-1.0); BUN - BLOOD UREA NITROGEN 16 mg/dL (6-20); CALCIUM 9.2 mg/dL (8.5-10.3); CARBON DIOXIDE - CO2 27 mmol/L (21-32); CHLORIDE 106 mmol/L (101-111); CHOL/HDL RATIO 2.5 (<4.4); CHOLESTEROL 101 mg/dL; CREATININE 0.5 mg/dL (0.4-1.0); GFR - MDRD 123 (>89); GLUCOSE 120 mg/dL (70-100); HDL CHOLESTEROL 41 mg/dL; LDL CHOLESTEROL,CALCULATED 43 mg/dL; SODIUM 140 mmol/L (135-145); TOTAL PROTEIN 6.7 g/dL (6.7-8.2); VLDL CHOLESTEROL 17 mg/dL
[2018-01-27 10:11] LABS: THYROID STIMULATING HORMONE 0.16 uIU/mL (0.34-5.60)
[2018-01-27 11:05] LABS: FREE T4 (FREE THYROXINE) 0.88 ng/dL (0.58-1.64)
== END 2018-01-27 08:38 | disposition home or self-care (01) ==
LOC: LAB 08:37
PROVIDERS: ATTEND Physician Assistant Medical
DX: E78.5 Hyperlipidemia, unspecified (principal); E03.9 Hypothyroidism, unspecified; Z51.81 Encounter for therapeutic drug level monitoring; Z79.899 Other long term (current) drug therapy
CPT/HCPCS: 36415; 80053; 80061; 83721; 84439; 84443

== ENCOUNTER 2018-01-31 12:21 | Outpatient (CLI) | payer MEDICARE, OTHER ==
[2018-01-31 13:33] LABS: HB2 TOTAL 14.1 g/dL; HEMOGLOBIN A1C 0.47 g/dL; HEMOGLOBIN A1C % 5.2 % (4.6-6.2)
== END 2018-01-31 12:22 | disposition home or self-care (01) ==
LOC: LAB 12:21
PROVIDERS: ATTEND Physician Assistant Medical
DX: R73.9 Hyperglycemia, unspecified (principal)
CPT/HCPCS: 36415; 83036

== ENCOUNTER 2018-08-19 08:55 | Outpatient (CLI) | payer MEDICARE, OTHER ==
[2018-08-19 09:29] LABS: BASOPHILS # (AUTO) 0.1 10^3/uL (0.0-0.1); BASOPHILS % (AUTO) 1.5 %; EOSINOPHILS # (AUTO) 0.2 10^3/uL (0.0-0.7); EOSINOPHILS % (AUTO) 4.7 %; HGB - HEMOGLOBIN 12.5 g/dL (12.0-16.0); LYMPHOCYTES # (AUTO) 1.1 10^3/uL (1.5-3.5); LYMPHOCYTES % (AUTO) 21.6 %; MEAN CORPUSCULAR HEMOGLOBIN 32.1 pg (27.0-31.0); MEAN CORPUSCULAR HGB CONC 34.6 g/dL (32.0-36.0); MEAN PLATELET VOLUME 7.5 fL (7.9-10.8); MONOCYTES # (AUTO) 0.4 10^3/uL (0.0-1.0); MONOCYTES % (AUTO) 8.9 %; NEUTROPHILS # (AUTO) 3.2 10^3/uL (1.5-6.6); NEUTROPHILS % (AUTO) 63.3 %; PLT - PLATELET COUNT 259 10^3/uL (130-450); RED BLOOD COUNT 3.89 10^6/uL (4.20-5.40); RED CELL DISTRIBUTION WIDTH 14.6 % (12.0-15.0)
[2018-08-19 09:46] LABS: ALBUMIN 3.7 g/dL (3.2-5.5); ALBUMIN/GLOBULIN RATIO 1.2 (1.0-2.2); ALKALINE PHOSPHATASE 89 IU/L (42-121); ALT ALANINE AMINOTRANSFERASE 26 IU/L (10-60); AST ASPARTATE AMINOTRANSFERASE 27 IU/L (10-42); BILIRUBIN,TOTAL 0.7 mg/dL (0.2-1.0); BUN - BLOOD UREA NITROGEN 12 mg/dL (6-20); CALCIUM 9.1 mg/dL (8.5-10.3); CARBON DIOXIDE - CO2 29 mmol/L (21-32); CHLORIDE 102 mmol/L (101-111); CHOL/HDL RATIO 2.4 (<4.4); CHOLESTEROL 120 mg/dL; CREATININE 0.6 mg/dL (0.4-1.0); GFR - MDRD 99 (>89); GLUCOSE 105 mg/dL (70-100); HDL CHOLESTEROL 50 mg/dL; LDL CHOLESTEROL,CALCULATED 48 mg/dL; SODIUM 140 mmol/L (135-145); TOTAL PROTEIN 6.8 g/dL (6.7-8.2); VLDL CHOLESTEROL 22 mg/dL
== END 2018-08-19 08:56 | disposition home or self-care (01) ==
LOC: LAB 08:55
PROVIDERS: ATTEND Physician Assistant Medical
DX: R73.9 Hyperglycemia, unspecified (principal); I25.10 Atherosclerotic heart disease of native coronary artery without angina pectoris; E03.9 Hypothyroidism, unspecified
CPT/HCPCS: 36415; 80053; 80061; 83721; 84443; 85025

== ENCOUNTER 2018-10-12 13:15 | Outpatient (CLI) | payer MEDICARE, OTHER | END 2018-10-12 13:16 | disposition home or self-care (01) | LOC: SC 13:15 | PROVIDERS: ATTEND Nurse Practitioner Family | DX: G47.33 Obstructive sleep apnea (adult) (pediatric) (principal) | CPT/HCPCS: 99214; G0463; 99212 ==

== ENCOUNTER 2018-12-08 11:12 | Outpatient (CLI) | payer MEDICARE, OTHER | END 2018-12-08 11:13 | disposition home or self-care (01) | LOC: SC 11:12 | PROVIDERS: ATTEND Nurse Practitioner Family | DX: G47.33 Obstructive sleep apnea (adult) (pediatric) (principal) | CPT/HCPCS: 99213; G0463; 99212 ==

== ENCOUNTER 2019-04-06 08:00 | Outpatient (CLI) | payer MEDICARE, OTHER ==
[2019-04-06 09:08] LABS: BASOPHILS # (AUTO) 0.1 10^3/uL (0.0-0.1); BASOPHILS % (AUTO) 1.7 %; EOSINOPHILS # (AUTO) 0.2 10^3/uL (0.0-0.7); EOSINOPHILS % (AUTO) 3.8 %; HGB - HEMOGLOBIN 13.5 g/dL (12.0-16.0); LYMPHOCYTES # (AUTO) 1.3 10^3/uL (1.5-3.5); LYMPHOCYTES % (AUTO) 26.8 %; MEAN CORPUSCULAR HEMOGLOBIN 31.4 pg (27.0-31.0); MEAN CORPUSCULAR HGB CONC 34.1 g/dL (32.0-36.0); MEAN CORPUSCULAR VOLUME 91.9 fL (81.0-99.0); MEAN PLATELET VOLUME 7.2 fL (7.9-10.8); MONOCYTES # (AUTO) 0.5 10^3/uL (0.0-1.0); MONOCYTES % (AUTO) 9.7 %; NEUTROPHILS # (AUTO) 2.9 10^3/uL (1.5-6.6); PLT - PLATELET COUNT 280 10^3/uL (130-450); RED BLOOD COUNT 4.31 10^6/uL (4.20-5.40); RED CELL DISTRIBUTION WIDTH 13.7 % (12.0-15.0)
[2019-04-06 09:27] LABS: ALBUMIN/GLOBULIN RATIO 1.4 (1.0-2.2); ALKALINE PHOSPHATASE 71 IU/L (42-121); ALT ALANINE AMINOTRANSFERASE 35 IU/L (10-60); AST ASPARTATE AMINOTRANSFERASE 35 IU/L (10-42); BILIRUBIN,TOTAL 0.8 mg/dL (0.2-1.0); BUN - BLOOD UREA NITROGEN 14 mg/dL (6-20); CALCIUM 9.2 mg/dL (8.5-10.3); CARBON DIOXIDE - CO2 26 mmol/L (21-32); CHLORIDE 102 mmol/L (101-111); CHOL/HDL RATIO 2.6 (<4.4); CHOLESTEROL 116 mg/dL; CREATININE 0.6 mg/dL (0.4-1.0); GFR - MDRD 99 (>89); GLUCOSE 110 mg/dL (70-100); HDL CHOLESTEROL 45 mg/dL; LDL CHOLESTEROL,CALCULATED 52 mg/dL; LDL/HDL RATIO 1.2 (<4.4); SODIUM 139 mmol/L (135-145); TOTAL PROTEIN 6.9 g/dL (6.7-8.2); VLDL CHOLESTEROL 19 mg/dL
== END 2019-04-06 23:59 | disposition home or self-care (01) ==
LOC: LAB 08:00
PROVIDERS: ATTEND Physician Assistant Medical
DX: R73.9 Hyperglycemia, unspecified (principal); I25.10 Atherosclerotic heart disease of native coronary artery without angina pectoris; E03.9 Hypothyroidism, unspecified
CPT/HCPCS: 36415; 80053; 80061; 83721; 84443; 85025

== ENCOUNTER 2019-10-05 08:04 | Outpatient (CLI) | payer MEDICARE, OTHER ==
[2019-10-05 08:41] LABS: BUN - BLOOD UREA NITROGEN 17 mg/dL (6-20); CALCIUM 9.3 mg/dL (8.5-10.3); CARBON DIOXIDE - CO2 31 mmol/L (21-32); CHLORIDE 104 mmol/L (101-111); CHOL/HDL RATIO 2.3 (<4.4); CHOLESTEROL 126 mg/dL; CREATININE 0.7 mg/dL (0.4-1.0); GFR - MDRD 83 (>89); GLUCOSE 118 mg/dL (70-100); HDL CHOLESTEROL 54 mg/dL; LDL CHOLESTEROL,CALCULATED 55 mg/dL; SODIUM 142 mmol/L (135-145); VLDL CHOLESTEROL 17 mg/dL
[2019-10-05 09:25] LABS: FREE T4 (FREE THYROXINE) 0.94 ng/dL (0.58-1.64)
== END 2019-10-05 08:05 | disposition home or self-care (01) ==
LOC: LAB 08:04
PROVIDERS: ATTEND Physician Assistant Medical
DX: E78.5 Hyperlipidemia, unspecified (principal); E03.9 Hypothyroidism, unspecified
CPT/HCPCS: 36415; 80048; 80061; 83721; 84439; 84443

== ENCOUNTER 2021-01-31 07:09 | Outpatient (CLI) | payer MEDICARE, OTHER ==
[2021-01-31 07:53] LABS: BASOPHILS # (AUTO) 0.1 10^3/uL (0.0-0.1); BASOPHILS % (AUTO) 1.6 %; EOSINOPHILS # (AUTO) 0.2 10^3/uL (0.0-0.7); EOSINOPHILS % (AUTO) 3.4 %; HCT - HEMATOCRIT 38.1 % (37.0-47.0); HGB - HEMOGLOBIN 12.7 g/dL (12.0-16.0); LYMPHOCYTES # (AUTO) 1.3 10^3/uL (1.5-3.5); LYMPHOCYTES % (AUTO) 28.6 %; MEAN CORPUSCULAR HEMOGLOBIN 32.1 pg (27.0-31.0); MEAN CORPUSCULAR HGB CONC 33.3 g/dL (32.0-36.0); MEAN CORPUSCULAR VOLUME 96.2 fL (81.0-99.0); MEAN PLATELET VOLUME 8.9 fL (7.9-10.8); MONOCYTES # (AUTO) 0.5 10^3/uL (0.0-1.0); MONOCYTES % (AUTO) 10.6 %; NEUTROPHILS # (AUTO) 2.5 10^3/uL (1.5-6.6); NEUTROPHILS % (AUTO) 55.6 %; PLT - PLATELET COUNT 239 10^3/uL (130-450); RED BLOOD COUNT 3.96 10^6/uL (4.20-5.40); RED CELL DISTRIBUTION WIDTH 13.4 % (12.0-15.0); WHITE BLOOD COUNT 4.4 x10^3/uL (4.8-10.8)
[2021-01-31 08:18] LABS: ALBUMIN 3.9 g/dL (3.2-5.5); ALBUMIN/GLOBULIN RATIO 1.4 (1.0-2.2); ALKALINE PHOSPHATASE 73 IU/L (42-121); ALT ALANINE AMINOTRANSFERASE 25 IU/L (10-60); AST ASPARTATE AMINOTRANSFERASE 24 IU/L (10-42); BILIRUBIN,TOTAL 0.7 mg/dL (0.2-1.0); BUN - BLOOD UREA NITROGEN 17 mg/dL (6-20); CALCIUM 9.3 mg/dL (8.5-10.3); CARBON DIOXIDE - CO2 28 mmol/L (21-32); CHLORIDE 102 mmol/L (101-111); CHOL/HDL RATIO 2.3 (<4.4); CHOLESTEROL 115 mg/dL; CREATININE 0.7 mg/dL (0.4-1.0); GFR - MDRD 83 (>89); GLUCOSE 113 mg/dL (70-100); HDL CHOLESTEROL 51 mg/dL; LDL CHOLESTEROL,CALCULATED 45 mg/dL; LDL/HDL RATIO 0.9 (<4.4); POTASSIUM 3.9 mmol/L (3.5-5.0); SODIUM 141 mmol/L (135-145); TOTAL PROTEIN 6.7 g/dL (6.7-8.2); TRIGLYCERIDES 94 mg/dL; VLDL CHOLESTEROL 19 mg/dL
[2021-01-31 08:25] LABS: THYROID STIMULATING HORMONE 1.16 uIU/mL (0.34-5.60)
[2021-01-31 13:45] LABS: ESTIMATED AVERAGE GLUCOSE 114 mg/dL (70-100); HEMOGLOBIN A1c% 5.6 % (4.27-6.07)
== END 2021-01-31 07:10 | disposition home or self-care (01) ==
LOC: LAB 07:09
PROVIDERS: ATTEND Physician Assistant Medical
DX: E78.5 Hyperlipidemia, unspecified (principal); I10 Essential (primary) hypertension; R73.9 Hyperglycemia, unspecified; M89.9 Disorder of bone, unspecified; G47.30 Sleep apnea, unspecified
CPT/HCPCS: 36415; 80053; 80061; 83036; 83721; 84443; 85025

== ENCOUNTER 2021-04-09 14:17 | Outpatient (CLI) | payer MEDICARE, OTHER ==
--- NOTE | 2021-04-09 14:44 | SLEEP CARE CONSULTATION ---
Information from patient questionnaire entered by Sheridan Santamaria. I have reviewed and concur with the information entered by Sheridan Santamaria. This document represents the service I personally performed and the decisions made by , Leeanna Alamo ARNP. History of Present Illness Service Date and Time: 04/09/2021 1417 Previous diagnosis: Moderate, Obstructive Sleep Apnea-Hypopnea Syndrome AHI: 15.3 (in 2015) Reason for follow up: annual (last seen 04/2020) Equipment type: CPAP Equipment obtained from: [employer] (getting supplies as needed) Mask style: Nasal pillows Backup mask available: Yes (old mask) Last cushion change: don't know Prior sleep studies: Yes Year and Where: 2015 - [facility]; 2009 - (unknown) HPI additional information: MARY ALICE LEVINE was diagnosed to have moderate, AHI 15.3, obstructive sleep apnea-h ypopnea syndrome and returned today for CPAP therapy annual follow-up. CPAP Compliance Data - Data Reviewed with Patient Average duration of nightly device use: 7 hr 21 min Compliance rate %: 97.2 (180 days) Current pressure setting (cmH2O): 6-12 Humidity settin Heated hose settin Average residual AHI: 3.5 Average large leak: 1 min 46 sec Subjective Patient concerns: denies: aerophagia, mask discomfort, air blowing in eyes, mask leak noise, condensation in mask/hose, nasal congestion, dry mouth, nose, throat, epistaxis, other Observed to snore while using device: No Current pressure setting perceived as: comfortable On therapy, patient: reports: sleeping better, awakening more refreshed, being more awake and alert during the day, more rested overall. denies: drowsiness while driving Initial [place] Sleepiness Scale score: 18 (in 2016) Current [place] Sleepiness Scale score: 11 Allergies and Home Medications Home medication list reviewed: Yes (Wellbutrin) Review of Systems Review of systems same as previous: No (depression) Physical Exam Heart Rate: 73 O2 Saturation: 98 Height: 5 ft 8 in Weight: 254 lb Body Mass Index: 38.6 BMI Classification: Obese Impression and Plan 1. Obstructive Sleep Apnea-Hypopnea Syndrome, moderate, with good treatment compliance and good apnea control. On CPAP therapy, the patient has better sleep quality and is more rested overall. Patient has significant improvement of her sleep apnea and is satisfied with her treatment. She has no complaints of skin irritation, aerophagia, epistaxis, dry mouth or nasal congestion. We will follow-up with patient in 1 year or sooner if she should have any concerns. Patient's apnea severity and rationale for treatment to reduce apnea, improve sleep quality and reduce cardiovascular and cerebrovascular events was reviewed. * Continue auto CPAP pressure at 6-12 cmH2O * Notify me if snoring with mask or feeling that the pressure is too much or too little * Attempt to lose weight * Call this office if any problems using CPAP * Return for follow up in 1 year, or sooner if concerns arise Counseling Topics: Spare mask, Weight loss health impact Visit Type: In Office Time Spent with Patient (minutes): 13 Provider Statement: I spent 100% of the Face to Face Visit with the patient with greater than 50% spent counseling the patient and coordination of care.
== END 2021-04-09 14:18 | disposition home or self-care (01) ==
LOC: SC 14:17
PROVIDERS: ATTEND Nurse Practitioner Family
DX: G47.33 Obstructive sleep apnea (adult) (pediatric) (principal); E66.9 Obesity, unspecified; Z68.38 Body mass index [BMI] 38.0-38.9, adult
CPT/HCPCS: 99212; G0463

== ENCOUNTER 2021-07-08 08:04 | Day surgery (SDC) | payer MEDICARE, OTHER ==
[2021-07-08] MEDS ORDERED: LACTATED RINGERS 1,000 ML IV ONE (08:25)
--- NOTE | 2021-07-08 08:57 | ANESTHESIA ---
Pre-Anesthesia VS, & Labs - Diagnosis positive cologard - Procedure colonoscopy Vital Signs: Temp Pulse Resp BP Pulse Ox 36.3 C L 72 16 143/82 H 98 07/08/21 08:16 07/08/21 08:16 07/08/21 08:16 07/08/21 08:16 07/08/21 08:16 Height: 5 ft 8 in Weight (kg): 111 kg Body Mass Index: 37.2 BMI Classification: Obese - NPO >8 hours - Is Patient ?: No Home Medications and Allergies Home Medications: Ambulatory Orders Aspirin [Aspirin EC] 81 mg PO DAILY 07/01/21 Atorvastatin [Lipitor] 40 mg PO DAILY 07/01/21 Bupropion HCl [Wellbutrin Xl] 150 mg PO DAILY 07/01/21 Levothyroxine Sodium [Euthyrox] 137 mcg PO DAILY 07/01/21 Metoprolol Succinate [Toprol Xl] 25 mg PO DAILY 07/01/21 Beta-Carotene(A) W-C & E/Zn/Se [Antioxidant Tablet] 1 each PO DAILY 04/18/13 Cholecalciferol (Vitamin D3) [Vitamin D3] 8,000 unit PO DAILY 04/18/13 Duloxetine HCl [Cymbalta] 60 mg PO DAILY 04/18/13 Multivitamin [Multivitamins] 1 each PO DAILY 04/18/13 [place]-3 Fatty Acids/Fish Oil [[place] 3 1,000 mg Softgel] 2 each PO DAILY 04/18/13 Triamterene/Hydrochlorothiazid [Triamterene-Hctz 37.5-25 mg Tb] 1 tab PO DAILY 04/18/13 Ubidecarenone [Coq-10] 1 tab PO DAILY 04/18/13 Aspirin [Aspirin EC] 81 mg PO DAILY 07/01/21 Atorvastatin [Lipitor] 40 mg PO DAILY 07/01/21 Bupropion HCl [Wellbutrin Xl] 150 mg PO DAILY 07/01/21 Levothyroxine Sodium [Euthyrox] 137 mcg PO DAILY 07/01/21 Metoprolol Succinate [Toprol Xl] 25 mg PO DAILY 07/01/21 Allergies/Adverse Reactions: Allergies Allergy/AdvReac Type Severity Reaction Status Date / Time codeine [Codeine] Allergy Intermediate Nausea Verified 11/06/17 23:17 Anes History & Medical History - Anesthetic History Anesthesia Complications: reports: Post-Operative Nausea/Vomiting - Medical History Cardiovascular: reports: Hypertension, High cholesterol, Coronary artery disease, [place] (2018, no longer any chest pain) Pulmonary: reports: Sleep apnea, CPAP use Gastrointestinal: reports: None Urinary: reports: None Musculoskeletal: reports: Osteoarthritis, Fibromyalgia, Chronic back pain Endocrine/Autoimmune: reports: HyPOthyroidism Blood Disorders: reports: None Skin: reports: None Smoking Status: Never smoker - Surgical History General: reports: Cholecystectomy, Colonoscopy, Other Eyes Ears Nose Throat (EENT): reports: Cataracts Cardiothoracic: reports: Coronary stent Gynecologic: reports: Tubal ligation Exam General: Alert Dental: WNL Mouth Opening: Greater than 4 Fingerbreadths Neck Mobility: Reduced Mallampati classification: II Thyromental Distance: greater than 6 cm Respiratory: Lungs clear Cardiovascular: Regular rate Plan Anesthesia Type: Total IV Consent for Procedure(s) Verified and Reviewed: Yes Code Status: Attempt Resuscitation ASA classification: 3-Severe systemic disease Is this case an emergency?: No
[2021-07-08] MEDS ORDERED: PROPOFOL 500 MG/50 ML 500 MG/50 ML VIAL ONE (09:25)
[2021-07-08] MEDS ORDERED: LACTATED RINGERS 500 ML IV ONE (10:29)
[2021-07-08 10:53] VITALS: BP 120/73
--- NOTE | 2021-07-08 12:55 | ANESTHESIA POST OP EVALUATION ---
Anesthesia Post Eval - Post Anesthesia Eval Vitals: Last Vital Signs Temp 36.8 C 07/08/21 10:52 Pulse 65 07/08/21 10:52 Resp 14 07/08/21 10:52 BP 120/73 07/08/21 10:52 Pulse Ox 100 07/08/21 10:52 CV Function Including HR & BP: Stable Pain Control: Satisfactory Nausea & Vomiting: Negative Mental Status: Baseline Respiratory Status: Airway Patent Hydration Status: Satisfactory Anesthesia Complications: None
== END 2021-07-08 08:05 | disposition home or self-care (01) ==
LOC: SDS 08:04
PROVIDERS: ATTEND Surgery
DX: R19.5 Other fecal abnormalities (principal); E66.9 Obesity, unspecified; Z68.37 Body mass index [BMI] 37.0-37.9, adult; I25.10 Atherosclerotic heart disease of native coronary artery without angina pectoris; I25.2 Old myocardial infarction; G47.33 Obstructive sleep apnea (adult) (pediatric)
CPT/HCPCS: 45378; J7120

== ENCOUNTER 2021-08-15 08:08 | Outpatient (CLI) | payer MEDICARE, OTHER ==
[2021-08-15 08:45] LABS: BUN - BLOOD UREA NITROGEN 13 mg/dL (6-20); CALCIUM 9.5 mg/dL (8.5-10.3); CARBON DIOXIDE - CO2 28 mmol/L (21-32); CHLORIDE 101 mmol/L (101-111); CHOL/HDL RATIO 2.3 (<4.4); CHOLESTEROL 120 mg/dL; CREATININE 0.6 mg/dL (0.4-1.0); GFR - MDRD 99 (>89); GLUCOSE 109 mg/dL (70-100); HDL CHOLESTEROL 52 mg/dL; LDL CHOLESTEROL,CALCULATED 42 mg/dL; LDL/HDL RATIO 0.8 (<4.4); POTASSIUM 4.4 mmol/L (3.5-5.0); SODIUM 140 mmol/L (135-145); TRIGLYCERIDES 128 mg/dL; VLDL CHOLESTEROL 26 mg/dL
[2021-08-15 14:40] LABS: ESTIMATED AVERAGE GLUCOSE 114 mg/dL (70-100); HEMOGLOBIN A1c% 5.6 % (4.27-6.07)
== END 2021-08-15 08:09 | disposition home or self-care (01) ==
LOC: LAB 08:08
PROVIDERS: ATTEND Physician Assistant Medical
DX: R73.9 Hyperglycemia, unspecified (principal); E78.5 Hyperlipidemia, unspecified
CPT/HCPCS: 36415; 80048; 80061; 83036; 83721

== ENCOUNTER 2021-08-28 08:00 | Outpatient (CLI) | payer MEDICARE, OTHER | END 2021-08-28 23:59 | disposition home or self-care (01) | LOC: LAB.WCP 08:00 | PROVIDERS: ATTEND Physician Assistant Medical | DX: J06.9 Acute upper respiratory infection, unspecified (principal); Z20.822 Contact with and (suspected) exposure to COVID-19 ==

== ENCOUNTER 2022-07-24 10:58 | Outpatient (CLI) | payer MEDICARE, OTHER ==
[2022-07-24 11:20] VITALS: BP 142/82
--- NOTE | 2022-07-24 11:20 | SLEEP CARE CONSULTATION ---
Information from patient questionnaire entered by Sergio Dickey. I have reviewed and concur with the information entered by Sergio Dickey. This document represents the service I personally performed and the decisions made by , Leeanna Alamo ARNP. History of Present Illness Service Date and Time: 07/24/2022 1058 Previous diagnosis: Moderate, Obstructive Sleep Apnea-Hypopnea Syndrome AHI: 15.3 (in 2015) Reason for follow up: annual (LAST SEEN 04/2021) Equipment type: CPAP Equipment obtained from: [employer] (getting supplies as needed) Mask style: Nasal pillows Mask brand: Respironics (Dreamwear) Backup mask available: Yes (old mask) Last cushion change: 6 months Prior sleep studies: Yes Year and Where: 2015 - [facility]; 2009 (unknown) HPI additional information: MARY ALICE LEVINE was diagnosed to have moderate, AHI 15.3, obstructive sleep apnea- hypopnea syndrome and returned today for CPAP therapy annual follow-up. Sleep Study - Results Prior sleep studies: Yes Year and Where: 2015 - [facility]; 2009 (unknown) CPAP Compliance Data - Data Reviewed with Patient Average duration of nightly device use: 8 HOURS, 8 MINUTES, 25 SECONDS Compliance rate %: 100 (01/23/22 TO 07/21/22; 180/180 days used) Current pressure setting (cmH2O): 6-12 Average residual AHI: 3.8 Average large leak: 5 secs Subjective Patient concerns: denies: aerophagia, mask discomfort, air blowing in eyes, mask leak noise, condensation in mask/hose, nasal congestion, dry mouth, nose, throat, epistaxis Observed to snore while using device: No Current pressure setting perceived as: comfortable On therapy, patient: reports: sleeping better, awakening more refreshed, being more awake and alert during the day, more rested overall. denies: drowsiness while driving Initial [place] Sleepiness Scale score: 18 (in 2016) Current [place] Sleepiness Scale score: 4 (07/24/22) Allergies and Home Medications Drug allergies reviewed: Yes (codeine) Home medication list reviewed: Yes (no changes) Allergy and home medication list: Allergies codeine [Codeine] Allergy (Intermediate, Verified 11/06/17 23:17) Nausea N/V Review of Systems Review of systems same as previous: Yes (no changes) Physical Exam Vital signs obtained and entered by: GARY MILLIGAN Blood Pressure: 142/82 (left arm ) Cuff size: regular Heart Rate: 63 O2 Saturation: 100 Height: 5 ft 8 in Weight: 245 lb Weight change since last visit: 9 lb loss Body Mass Index: 37.2 BMI Classification: Obese Impression and Plan 1. Obstructive Sleep Apnea-Hypopnea Syndrome, moderate, with excellent treatment compliance and good apnea control. On CPAP therapy, the patient has better sleep quality and is more rested overall. Patient has significant improvement of her sleep apnea and is satisfied with current CPAP therapy. Patient denies problems with oral dryness, nasal congestion, epistaxis, skin irritation or aerophagia. Patient's apnea severity and rationale for treatment to reduce handkerchief maker ea, improve sleep quality and reduce cardiovascular and cerebrovascular events was reviewed. 2. Obesity, unspecified. Currently patients BMI is 37.2. Obesity increases the risk of apnea, CPAP pressure requirements and overall health risks especially cardiovascular and diabetes. Thus patient is advised to continue to try to lose weight. Weight loss can be done with reducing portion size, reducing refined foods and balancing content with vegetables, fruit and whole grain foods. In addition, patient encouraged to get regular exercise. * Continue auto CPAP pressure at 6-12 cmH2O * Update supplies * Notify me if snoring with mask or feeling that the pressure is too much or too little * Continue to try to lose weight * Call this office if any problems using CPAP * Return for follow up in 1 year, or sooner if concerns arise Counseling Topics: Spare mask, Weight loss health impact Visit Type: In Office Time Spent with Patient (minutes): 11 Provider Statement: I spent 100% of the Face to Face Visit with the patient with greater than 50% spent counseling the patient and coordination of care.
== END 2022-07-24 10:59 | disposition home or self-care (01) ==
LOC: SC 10:58
PROVIDERS: ATTEND Nurse Practitioner Family
DX: G47.33 Obstructive sleep apnea (adult) (pediatric) (principal); E66.9 Obesity, unspecified; Z68.37 Body mass index [BMI] 37.0-37.9, adult
CPT/HCPCS: 99212; G0463

== ENCOUNTER 2022-08-03 08:34 | Outpatient (CLI) | payer MEDICARE, OTHER ==
--- NOTE | 2022-08-03 11:55 | XRAY Report ---
PROCEDURE: Hips 2V BILAT INDICATIONS: HIP PAIN BILAT TECHNIQUE: 2 views of the hip were acquired. COMPARISON: None FINDINGS: Bones: No fractures or dislocations. No suspicious bony lesions. The visualized pelvic ring appear s intact. There is moderate to severe left and moderate right generative joint space narrowing. Dege nerative changes are present within the lower lumbar spine. Soft tissues: No suspicious soft tissue calcifications or masses. IMPRESSION: Arthritic changes within the hip joints bilaterally, left greater than right. Reviewed by: Cristina Rodriguez MD on 08/03/2022 11:53 AM PDT Approved by: Cristina Rodriguez MD on 08/03/2022 11:53 AM PDT Station ID: [id number]
--- NOTE | 2022-08-03 11:56 | XRAY Report ---
PROCEDURE: Knee 3 View BILAT INDICATIONS: OSTEOARTHRITIS,KNEES BILAT TECHNIQUE: 3 views of the bilateral knee(s) were acquired. COMPARISON: None. FINDINGS: Bones: No fractures or dislocations. No suspicious bony lesions. There is severe right medial and moderate to severe left medial compartment narrowing. Moderate bilateral lateral compartment narrowin g is present with periarticular osteophytes bilaterally. Patellofemoral compartment narrowing is pres ent bilaterally. No definitive erosions. Soft tissues: No joint effusion. No suspicious soft tissue calcifications. IMPRESSION: Tricompartmental arthritic change most severe medially on the right. Reviewed by: Cristina Rodriguez MD on 08/03/2022 11:54 AM PDT Approved by: Cristina Rodriguez MD on 08/03/2022 11:54 AM PDT Station ID: [id number]
--- NOTE | 2022-08-03 11:57 | XRAY Report ---
PROCEDURE: Lumbar Spine 2 View INDICATIONS: DDD LUMBAR TECHNIQUE: 3 views of the lumbar spine were acquired. COMPARISON: Lumbar spine 07/20/2017 FINDINGS: Bones: 5 ibr-stn-yxeiwhs vertebrae are present. There is interval degenerative changes with moderat e to severe disc space narrowing at L4-5 and L5-S1, moderate throughout the remainder of the lumbar s pine. Moderate to severe foraminal narrowing is also noted L5-S1. Overall changes relatively stable s dixon prior exam. No vertebral body compression fractures. No suspicious bony lesions. Soft tissues: Overlying bowel gas pattern is normal. No suspicious soft tissue calcifications. IMPRESSION: Degenerative changes most severe at L5-S1. Reviewed by: Cristina Rodriguez MD on 08/03/2022 11:55 AM PDT Approved by: Cristina Rodriguez MD on 08/03/2022 11:55 AM PDT Station ID: [id number]
== END 2022-08-03 08:35 | disposition home or self-care (01) ==
LOC: DI 08:34
PROVIDERS: ATTEND Physician Assistant Medical
DX: M47.816 Spondylosis without myelopathy or radiculopathy, lumbar region (principal); M47.817 Spondylosis without myelopathy or radiculopathy, lumbosacral region; M16.0 Bilateral primary osteoarthritis of hip; M17.0 Bilateral primary osteoarthritis of knee; M48.07 Spinal stenosis, lumbosacral region

== ENCOUNTER 2022-09-09 08:22 | Outpatient (CLI) | payer MEDICARE, OTHER ==
[2022-09-09 09:08] LABS: ESTIMATED AVERAGE GLUCOSE 126 mg/dL (70-100)
[2022-09-09 09:23] LABS: ALBUMIN/GLOBULIN RATIO 1.3 (1.0-2.2); ALKALINE PHOSPHATASE 72 IU/L (42-121); ALT ALANINE AMINOTRANSFERASE 28 IU/L (10-60); AST ASPARTATE AMINOTRANSFERASE 27 IU/L (10-42); BILIRUBIN,TOTAL 0.7 mg/dL (0.2-1.0); BUN - BLOOD UREA NITROGEN 18 mg/dL (6-20); CALCIUM 9.4 mg/dL (8.5-10.3); CARBON DIOXIDE - CO2 30 mmol/L (21-32); CHLORIDE 101 mmol/L (101-111); CHOL/HDL RATIO 2.3 (<4.4); CHOLESTEROL 144 mg/dL; CREATININE 0.6 mg/dL (0.4-1.0); GFR - MDRD 98 (>89); GLUCOSE 106 mg/dL (70-100); HDL CHOLESTEROL 62 mg/dL; LDL CHOLESTEROL,CALCULATED 60 mg/dL; POTASSIUM 4.3 mmol/L (3.5-5.0); SODIUM 141 mmol/L (135-145); TOTAL PROTEIN 7.2 g/dL (6.7-8.2); TRIGLYCERIDES 110 mg/dL; VLDL CHOLESTEROL 22 mg/dL
[2022-09-09 09:26] LABS: THYROID STIMULATING HORMONE 0.97 uIU/mL (0.34-5.60)
== END 2022-09-09 08:23 | disposition home or self-care (01) ==
LOC: LAB 08:22
PROVIDERS: ATTEND Physician Assistant Medical
DX: E03.9 Hypothyroidism, unspecified (principal); I25.10 Atherosclerotic heart disease of native coronary artery without angina pectoris; R73.9 Hyperglycemia, unspecified
CPT/HCPCS: 36415; 80053; 80061; 83036; 83721; 84443

== ENCOUNTER 2022-12-22 07:24 | Day surgery (SDC) | payer MEDICARE, OTHER ==
[2022-12-22] MEDS ORDERED: LACTATED RINGERS 1,000 ML IV ONE (07:50)
--- NOTE | 2022-12-22 07:53 | ANESTHESIA ---
Pre-Anesthesia VS, & Labs - Diagnosis history of colon polyps - Procedure colonoscopy Vital Signs: Temp Pulse Resp BP Pulse Ox O2 Flow Rate 36.1 C L 100 14 152/84 H 98 12/22/22 07:35 12/22/22 07:35 12/22/22 07:35 12/22/22 07:35 12/22/22 07:35 Height: 5 ft 8 in Weight (kg): 110 kg Body Mass Index: 36.8 BMI Classification: Obese - NPO >8 hours (prep as directed, finished at 4am) - Is Patient ?: No Home Medications and Allergies Duloxetine HCl [Cymbalta] 60 mg PO DAILY 04/18/13 Multivitamin [Multivitamins] 1 each PO DAILY 04/18/13 Triamterene/Hydrochlorothiazid [Triamterene-Hctz 37.5-25 mg Tb] 1 tab PO DAILY 04/18/13 Aspirin [Aspirin EC] 81 mg PO DAILY 07/01/21 Atorvastatin [Lipitor] 40 mg PO DAILY 07/01/21 Bupropion HCl [Wellbutrin Xl] 150 mg PO DAILY 07/01/21 Levothyroxine Sodium [Euthyrox] 137 mcg PO DAILY 07/01/21 Metoprolol Succinate [Toprol Xl] 25 mg PO DAILY 07/01/21 Allergies/Adverse Reactions: Allergies Allergy/AdvReac Type Severity Reaction Status Date / Time codeine [Codeine] Allergy Intermediate Nausea Verified 12/21/22 13:16 Anes History & Medical History - Anesthetic History Anesthesia Complications: reports: Post-Operative Nausea/Vomiting - Medical History Cardiovascular: reports: Coronary artery disease Pulmonary: reports: Sleep apnea, CPAP use Gastrointestinal: reports: Chronic constipation Urinary: reports: None Musculoskeletal: reports: Osteoarthritis, Chronic back pain Endocrine/Autoimmune: reports: HyPOthyroidism Blood Disorders: reports: None Skin: reports: None Smoking Status: Never smoker - Surgical History General: reports: Cholecystectomy, Colonoscopy, Other Eyes Ears Nose Throat (EENT): reports: Cataracts Cardiothoracic: reports: Coronary stent Gynecologic: reports: Tubal ligation Exam General: Alert, Oriented x3 Mouth Opening: Greater than 4 Fingerbreadths Neck Mobility: Normal Mallampati classification: I Thyromental Distance: greater than 6 cm Respiratory: Lungs clear Cardiovascular: Regular rate, Normal S1, Normal S2 Plan Anesthesia Type: Total IV Consent for Procedure(s) Verified and Reviewed: Yes Code Status: Attempt Resuscitation ASA classification: 3-Severe systemic disease Is this case an emergency?: No
[2022-12-22] MEDS ORDERED: PROPOFOL 500 MG/50 ML 500 MG/50 ML VIAL ONE (08:47)
[2022-12-22] MEDS ORDERED: PROPOFOL 200 MG/20 ML VIAL IVP ONE ×2 (09:55→10:28)
[2022-12-22] MEDS ORDERED: LACTATED RINGERS 300 ML IV ONE (10:36)
--- NOTE | 2022-12-22 11:05 | ANESTHESIA POST OP EVALUATION ---
Anesthesia Post Eval - Post Anesthesia Eval Vitals: Last Vital Signs Temp 36.4 C L 12/22/22 10:48 Pulse 70 12/22/22 10:48 Resp 16 12/22/22 10:48 BP 129/60 12/22/22 10:48 Pulse Ox 99 12/22/22 10:48 O2 Flow Rate CV Function Including HR & BP: Stable Pain Control: Satisfactory Nausea & Vomiting: Negative Mental Status: Baseline Respiratory Status: Airway Patent Hydration Status: Satisfactory Anesthesia Complications: None
[2022-12-22 11:39] VITALS: BP 128/76
== END 2022-12-22 07:25 | disposition home or self-care (01) ==
LOC: SDS 07:24
PROVIDERS: ATTEND Surgery
PROC: 0DBL8ZX Excision of Transverse Colon, Via Natural or Artificial Opening Endoscopic, Diagnostic (ICD-10-PCS; 2022-12-22)
PROC: 0DBN8ZX Excision of Sigmoid Colon, Via Natural or Artificial Opening Endoscopic, Diagnostic (ICD-10-PCS; principal; 2022-12-22 08:45)
DX: R19.5 Other fecal abnormalities (principal); D12.3 Benign neoplasm of transverse colon; D12.5 Benign neoplasm of sigmoid colon; K59.09 Other constipation; K64.8 Other hemorrhoids; I10 Essential (primary) hypertension; G47.33 Obstructive sleep apnea (adult) (pediatric); E66.9 Obesity, unspecified; Z68.38 Body mass index [BMI] 38.0-38.9, adult
CPT/HCPCS: 45380; 45385; J7120

== ENCOUNTER 2023-02-19 11:27 | Emergency (ER) | payer MEDICARE, OTHER ==
[2023-02-19 12:05] LABS: BILIRUBIN,URINE NEGATIVE (NEGATIVE); GLUCOSE, URINE (UA) NEGATIVE (NEGATIVE); KETONES,URINE (UA) NEGATIVE (NEGATIVE); LEUKOCYTE ESTERASE, URINE LARGE (NEGATIVE); NITRITE,URINE POSITIVE (NEGATIVE); OCCULT BLOOD,URINE NEGATIVE (NEGATIVE); PH,URINE 7.5 PH (5.0-7.5); PROTEIN,URINE NEGATIVE (NEGATIVE); UROBILINOGEN,URINE 0.2 (NORMAL) E.U./dL (NORMAL)
[2023-02-19 12:17] LABS: CLARITY,URINE SL. CLOUDY (CLEAR)
[2023-02-19 12:21] LABS: BACTERIA,URINE Moderate /HPF (None Seen); RBC,URINE 0-5 /HPF (0-5); SQUAMOUS EPITHELIAL CELL,UR MOD Squamous (<= Few)
[2023-02-19 12:27] LABS: BASOPHILS # (AUTO) 0.1 10^3/uL (0.0-0.1); BASOPHILS % (AUTO) 1.3 %; EOSINOPHILS # (AUTO) 0.2 10^3/uL (0.0-0.7); EOSINOPHILS % (AUTO) 2.8 %; HCT - HEMATOCRIT 38.9 % (37.0-47.0); HGB - HEMOGLOBIN 12.4 g/dL (12.0-16.0); LYMPHOCYTES # (AUTO) 1.8 10^3/uL (1.5-3.5); LYMPHOCYTES % (AUTO) 25.7 %; MEAN CORPUSCULAR HEMOGLOBIN 31.2 pg (27.0-31.0); MEAN CORPUSCULAR HGB CONC 31.9 g/dL (32.0-36.0); MEAN CORPUSCULAR VOLUME 97.7 fL (81.0-99.0); MEAN PLATELET VOLUME 8.8 fL (7.9-10.8); MONOCYTES # (AUTO) 0.6 10^3/uL (0.0-1.0); MONOCYTES % (AUTO) 9.4 %; NEUTROPHILS # (AUTO) 4.1 10^3/uL (1.5-6.6); NEUTROPHILS % (AUTO) 60.1 %; PLT - PLATELET COUNT 384 10^3/uL (130-450); RED BLOOD COUNT 3.98 10^6/uL (4.20-5.40); RED CELL DISTRIBUTION WIDTH 13.1 % (12.0-15.0); WHITE BLOOD COUNT 6.8 x10^3/uL (4.8-10.8)
[2023-02-19 12:37] LABS: ALBUMIN 3.4 g/dL (3.2-5.5); ALBUMIN/GLOBULIN RATIO 0.9 (1.0-2.2); BILIRUBIN,TOTAL 0.5 mg/dL (0.2-1.0); CALCIUM 9.6 mg/dL (8.5-10.3); CREATININE 0.7 mg/dL (0.4-1.0); POTASSIUM 4.1 mmol/L (3.5-5.0); TOTAL PROTEIN 7.4 g/dL (6.7-8.2)
--- NOTE | 2023-02-19 12:46 | ED Physician Documentation ---
History of Present Illness - Stated complaint Stated Complaint: FEMALE - Chief complaint Chief Complaint: General - History obtained from History obtained from: Patient - History of Present Illness Timing: How many weeks ago (1) Pain level max: 2 Pain level now: 2 - Additonal information Additional information: 72-year-old female presents to the emergency department stating that she has felt weak and chilled over the past 1 week. She states that this is occurred to her in the past with bladder infections. She states she normally does not have dysuria. She contacted her doctor who recommended she come here for urinalysis. She has felt feverish. No nausea or vomiting. No abdominal pain. No back pa in. No cough. No congestion. No rhinorrhea. 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 Cardiovascular: Coronary stent HEENT: Cataracts - Present Medications Home Medications: Ambulatory Orders Medication Instructions Recorded Confirmed Duloxetine HCl [Cymbalta] 60 mg PO DAILY 04/18/13 12/21/22 Multivitamin [Multivitamins] 1 each PO DAILY 04/18/13 12/21/22 Triamterene/Hydrochlorothiazid 1 tab PO DAILY 04/18/13 12/21/22 [Triamterene-Hctz 37.5-25 mg Tb] Aspirin [Aspirin EC] 81 mg PO DAILY 07/01/21 12/21/22 Atorvastatin [Lipitor] 40 mg PO DAILY 07/01/21 12/21/22 Levothyroxine Sodium [Euthyrox] 137 mcg PO DAILY 07/01/21 12/21/22 Metoprolol Succinate [Toprol Xl] 25 mg PO DAILY 07/01/21 12/21/22 buPROPion HCL [Wellbutrin Xl] 150 mg PO DAILY 07/01/21 12/21/22 Cefdinir 300 mg PO BID #20 cap 02/19/23 Fluconazole [Diflucan] 1 tablet PO ONCE 1 Days #1 tablet 02/19/23 - Allergies Allergies/Adverse Reactions: Allergies Allergy/AdvReac Type Severity Reaction Status Date / Time codeine [Codeine] Allergy Intermediate Nausea Verified 02/19/23 11:43 - Social History Does the pt smoke?: No Smoking Status: Never smoker Does the pt drink ETOH?: No Does the pt have substance abuse?: No - Immunizations Immunizations are current?: Yes - POLST Patient has POLST: No POLST Status: Full Code PD ED PE NORMAL - Vitals Vital signs reviewed: Yes - General General: Alert and oriented X 3, No acute distress - HEENT HEENT: PERRL, Moist mucous membranes - Neck Neck: Supple, no meningeal sign - Cardiac Cardiac: RRR, Strong equal pulses - Respiratory Respiratory: No respiratory distress, Clear bilaterally - Abdomen Abdomen: Soft, Non tender, Non distended - Back Back: No CVA TTP, No spinal TTP - Derm Derm: Warm and dry - Extremities Extremities: No edema - Neuro Neuro: Alert and oriented X 3 - Psych Psych: Normal mood, Normal affect Results - Vitals Vitals: Vital Signs - 24 hr 02/19/23 02/19/23 11:38 12:55 Temperature 36.5 C Heart Rate 80 69 Respiratory 16 18 Rate Blood Pressure 114/74 112/77 O2 Saturation 100 98 Oxygen O2 Source Room air - Labs Labs: Laboratory Tests 02/19/23 02/19/23 02/19/23 11:55 12:20 12:20 WBC 6.8 RBC 3.98 L Hgb 12.4 Hct 38.9 MCV 97.7 MCH 31.2 H MCHC 31.9 L RDW 13.1 Plt Count 384 MPV 8.8 Neut # (Auto) 4.1 Lymph # (Auto) 1.8 [place] # (Auto) 0.6 Eos # (Auto) 0.2 Baso # (Auto) 0.1 Absolute Nucleated RBC 0.00 Nucleated RBC % 0.0 Sodium 139 Potassium 4.1 Chloride 99 L Carbon Dioxide 29 Anion Gap 11.0 BUN 21 H Creatinine 0.7 Estimated GFR (MDRD) 82 L Glucose 116 H Calcium 9.6 Total Bilirubin 0.5 AST 25 ALT 28 Alkaline Phosphatase 75 Total Protein 7.4 Albumin 3.4 Globulin 4.0 Albumin/Globulin Ratio 0.9 L Lipase 31 Urine Color YELLOW Urine Clarity SL. CLOUDY Urine pH 7.5 Ur Specific [place] 1.010 Urine Protein NEGATIVE Urine Glucose (UA) NEGATIVE Urine Ketones NEGATIVE Urine Occult Blood NEGATIVE Urine Nitrite POSITIVE H Urine Bilirubin NEGATIVE Urine Urobilinogen 0.2 (NORMAL) Ur Leukocyte Esterase LARGE H Urine RBC 0-5 Urine WBC 11-25 H Ur Squamous Epith Cells MOD Squamous H Urine Bacteria Moderate H Ur Microscopic Review INDICATED Urine Culture Comments NOT INDICATED PD Medical Decision Making - ED course Complexity details: reviewed results, re-evaluated patient, considered differential, d/w patient ED course: Patient is well-appearing, nontoxic. Afebrile. Her CBC does not show any significant abnormalities. Chemistry is normal as well other than elevated BUN to creatinine ratio. Her urinalysis is consistent with UTI. Given her history of atypical UTIs, chills and feeling feverish at home, we will treat this. Patient counseled regarding signs and symptoms for which I believe and urgent re-evaluation would be necessary. Patient with good understanding of and agre ement to plan and is comfortable going home at this time This document was made in part using voice recognition software. While efforts are made to proofread this document, sound alike and grammatical errors may occur. Departure - Departure Disposition: Home, Self Care Clinical Impression: UTI (urinary tract infection) Qualifiers: Urinary tract infection type: acute cystitis Hematuria presence: without hematuria Qualified Code(s): N30.00 - Acute cystitis without hematuria Condition: Good Instructions: ED UTI Cystitis Female Follow-Up: Clarisa Snider PA-C [Primary Care Provider] - Within 1 week Prescriptions: Cefdinir 300 mg PO BID #20 cap Fluconazole [Diflucan] 1 tablet PO ONCE 1 Days #1 tablet Comments: [facility] [place]. Please follow-up with your doctor for further care. Please return if you worsen. Take all antibiotics until gone. You can take the Diflucan after completion of antibiotics. Discharge Date/Time: 02/19/23 12:57
[2023-02-19 12:56] VITALS: BP 112/77
== END 2023-02-19 12:57 | disposition home or self-care (01) ==
LOC: ED 11:27
DX: N30.00 Acute cystitis without hematuria (principal)
CPT/HCPCS: 36415; 80053; 81001; 81003; 83690; 85025; 87086; 99283

== ENCOUNTER 2023-05-05 17:01 | Outpatient (CLI) | payer MEDICARE, OTHER ==
[2023-05-05 17:28] LABS: BASOPHILS # (AUTO) 0.1 10^3/uL (0.0-0.1); EOSINOPHILS # (AUTO) 0.3 10^3/uL (0.0-0.7); EOSINOPHILS % (AUTO) 3.7 %; HCT - HEMATOCRIT 36.5 % (37.0-47.0); HGB - HEMOGLOBIN 11.9 g/dL (12.0-16.0); LYMPHOCYTES # (AUTO) 1.8 10^3/uL (1.5-3.5); LYMPHOCYTES % (AUTO) 26.1 %; MEAN CORPUSCULAR HEMOGLOBIN 31.8 pg (27.0-31.0); MEAN CORPUSCULAR HGB CONC 32.6 g/dL (32.0-36.0); MEAN CORPUSCULAR VOLUME 97.6 fL (81.0-99.0); MEAN PLATELET VOLUME 9.2 fL (7.9-10.8); MONOCYTES # (AUTO) 0.6 10^3/uL (0.0-1.0); MONOCYTES % (AUTO) 8.7 %; NEUTROPHILS # (AUTO) 4.1 10^3/uL (1.5-6.6); NEUTROPHILS % (AUTO) 60.2 %; PLT - PLATELET COUNT 274 10^3/uL (130-450); RED BLOOD COUNT 3.74 10^6/uL (4.20-5.40); RED CELL DISTRIBUTION WIDTH 14.5 % (12.0-15.0); WHITE BLOOD COUNT 6.8 x10^3/uL (4.8-10.8)
[2023-05-05 17:43] LABS: ALBUMIN 3.7 g/dL (3.2-5.5); ALBUMIN/GLOBULIN RATIO 1.1 (1.0-2.2); BILIRUBIN,TOTAL 0.6 mg/dL (0.2-1.0); CALCIUM 9.1 mg/dL (8.5-10.3); CREATININE 0.7 mg/dL (0.4-1.0); POTASSIUM 3.4 mmol/L (3.5-5.0); TOTAL PROTEIN 7.1 g/dL (6.7-8.2)
[2023-05-05 18:10] LABS: BILIRUBIN,URINE NEGATIVE (NEGATIVE); GLUCOSE, URINE (UA) NEGATIVE (NEGATIVE); KETONES,URINE (UA) NEGATIVE (NEGATIVE); LEUKOCYTE ESTERASE, URINE TRACE (NEGATIVE); NITRITE,URINE POSITIVE (NEGATIVE); OCCULT BLOOD,URINE NEGATIVE (NEGATIVE); PROTEIN,URINE NEGATIVE (NEGATIVE); UROBILINOGEN,URINE 0.2 (NORMAL) E.U./dL (NORMAL)
[2023-05-05 18:14] LABS: CLARITY,URINE HAZY (CLEAR)
[2023-05-05 18:36] LABS: BACTERIA,URINE Many /HPF (None Seen); RBC,URINE 0-5 /HPF (0-5); SQUAMOUS EPITHELIAL CELL,UR RARE Squamous (<= Few)
== END 2023-05-05 17:02 | disposition home or self-care (01) ==
LOC: LAB 17:01
PROVIDERS: ATTEND Nurse Practitioner
DX: I25.10 Atherosclerotic heart disease of native coronary artery without angina pectoris (principal); R60.0 Localized edema; R30.0 Dysuria; R06.00 Dyspnea, unspecified
CPT/HCPCS: 36415; 80053; 81001; 85025; 85379; 87086; 87181

== ENCOUNTER 2023-05-24 08:00 | Outpatient (CLI) | payer MEDICARE, OTHER ==
--- NOTE | 2023-05-24 17:27 | XRAY Report ---
PROCEDURE: Hip BILAT INDICATIONS: BILAT HIP PAIN TECHNIQUE: 2 views of the hip were acquired. COMPARISON: X-ray hips, 08/03/2022. FINDINGS: Bones: No fractures or dislocations. No suspicious bony lesions. Severe left and moderate right hip joint degeneration bilaterally. Mild sacroiliac joint degeneration. Moderate degenerative disc dise ase in lumbar spine. Soft tissues: No suspicious soft tissue calcifications or masses. IMPRESSION: 1. Severe left and moderate right hip joint osteoarthritis. Reviewed by: Zena Galaviz MD on 05/24/2023 5:26 PM PDT Approved by: Zena Galaviz MD on 05/24/2023 5:26 PM PDT Station ID: [id number]
== END 2023-05-24 23:59 | disposition home or self-care (01) ==
LOC: DI.WOS 08:00
PROVIDERS: ATTEND Physician Assistant Surgical
DX: M16.0 Bilateral primary osteoarthritis of hip (principal)

== ENCOUNTER 2023-06-24 08:00 | Outpatient (CLI) | payer MEDICARE, OTHER | END 2023-06-24 23:59 | disposition home or self-care (01) | LOC: LAB 08:00 | PROVIDERS: ATTEND Nurse Practitioner | DX: R30.0 Dysuria (principal) | CPT/HCPCS: 87086; 87181 ==

== ENCOUNTER 2023-07-20 08:00 | Outpatient (CLI) | payer MEDICARE, OTHER | END 2023-07-20 23:59 | disposition home or self-care (01) | LOC: LAB.R 08:00 | PROVIDERS: ATTEND Nurse Practitioner | DX: R30.0 Dysuria (principal) | CPT/HCPCS: 87086; 87181 ==

== ENCOUNTER 2023-08-11 15:16 | Outpatient (CLI) | payer MEDICARE, OTHER ==
[2023-08-11 18:45] LABS: BILIRUBIN,URINE NEGATIVE (NEGATIVE); GLUCOSE, URINE (UA) NEGATIVE (NEGATIVE); KETONES,URINE (UA) NEGATIVE (NEGATIVE); LEUKOCYTE ESTERASE, URINE NEGATIVE (NEGATIVE); NITRITE,URINE POSITIVE (NEGATIVE); OCCULT BLOOD,URINE NEGATIVE (NEGATIVE); PROTEIN,URINE NEGATIVE (NEGATIVE); UROBILINOGEN,URINE 0.2 (NORMAL) E.U./dL (NORMAL)
[2023-08-11 18:47] LABS: CLARITY,URINE CLEAR (CLEAR)
[2023-08-11 19:24] LABS: BACTERIA,URINE Many /HPF (None Seen); RBC,URINE 0-5 /HPF (0-5); SQUAMOUS EPITHELIAL CELL,UR RARE Squamous (<= Few); WBC,URINE 0-3 /HPF (0-5)
== END 2023-08-11 15:17 | disposition home or self-care (01) ==
LOC: LAB.N 15:16
PROVIDERS: ATTEND Nurse Practitioner
DX: N39.0 Urinary tract infection, site not specified (principal)
CPT/HCPCS: 81001; 87086; 87181

== ENCOUNTER 2023-08-13 11:25 | Outpatient (CLI) | payer MEDICARE, OTHER ==
--- NOTE | 2023-08-13 11:49 | Sleep Patient Instructions ---
Sleep Center Visit Summary - Patient Visit Information Reason for Visit: Annual Visit - Patient Instructions Additional Instructions: You will continue with CPAP therapy with pressure changed to 10.6-13 cmH2O. A supply prescription will be updated with your DME. We encourage you to continue to try to lose weight. Please follow up with the sleep care office in 1 year. - Clinic Information Contact: [facility] [address] [place] [address] [email or web address] T: [phone]
--- NOTE | 2023-08-13 11:52 | SLEEP CARE CONSULTATION ---
Information from patient questionnaire entered by Candy Grant. I have reviewed and concur with the information entered by Candy Grant. This document represents the service I personally performed and the decisions made by me, Leeanna Alamo ARNP. History of Present Illness Service Date and Time: 08/13/2023 1125 Previous diagnosis: Moderate, Obstructive Sleep Apnea-Hypopnea Syndrome AHI: 15.3 (in 2015) Reason for follow up: annual (LAST SEEN 07/2022) Equipment type: CPAP (FARRELL Dreamstation 2; s/u 10/2018) Equipment obtained from: [email or web address] ([employer]) (getting supplies as needed) Mask style: Nasal pillows Backup mask available: Yes Last cushion change: 2 months Prior sleep studies: Yes Year and Where: 2015 - [facility]; 2009 (unknown) HPI additional information: MARY ALICE LEVINE was diagnosed to have moderate, AHI 15.3, obstructive sleep apnea- hypopnea syndrome and returned today for CPAP therapy annual follow-up. Sleep Study - Results Prior sleep studies: Yes Year and Where: 2015 - [facility]; 2009 (unknown) CPAP Compliance Data - Data Reviewed with Patient Average duration of nightly device use: 8 HRS 14 MINS 41 SECS Compliance rate %: 100 (02/11/23-08/09/23; 180/180 days used) Current pressure setting (cmH2O): 6-12 (median 7.9. avg 10.2, max 12) Average residual AHI: 4.7 Central apnea: 0.3 Obstructive apnea: 2.4 Hypopnea: 2.0 Average large leak: 10 secs Subjective Patient concerns: reports: mask leak noise (just needs adjustment), dry mouth, nose, throat (most mornings). denies: aerophagia, mask discomfort, air blowing in eyes, condensation in mask/hose, nasal congestion, epistaxis Observed to snore while using device: No Current pressure setting perceived as: comfortable On therapy, patient: reports: sleeping better, awakening more refreshed, being more awake and alert during the day, more rested overall. denies: drowsiness while driving Initial [place] Sleepiness Scale score: 18 (in 2015) Current [place] Sleepiness Scale score: 6 (08/13/23) Allergies and Home Medications Known drug allergies: Yes (codeine) Drug allergies reviewed: Yes Home medication list reviewed: Yes (no changes) Allergy and home medication list: Allergies codeine [Codeine] Allergy (Intermediate, Verified 08/12/23 12:49) Nausea N/V Review of Systems Review of systems same as previous: Yes (NO CHANGE) Physical Exam Vital signs obtained and entered by: CANDY Jefferson MA Blood Pressure: 128/67 (RIGHT ) Cuff size: wrist Heart Rate: 81 O2 Saturation: 98 Height: 5 ft 8 in Weight: 248 lb 12.8 oz Weight change since last visit: 3 lb gain Body Mass Index: 37.8 BMI Classification: Obese Impression and Plan 1. Obstructive Sleep Apnea-Hypopnea Syndrome, moderate, with good treatment compliance and good apnea control. On CPAP therapy, the patient has better sleep quality and is more rested overall. Patient has significant improvement of thei r sleep apnea and is satisfied with current CPAP therapy. She does have a little oral dryness. She has not tried to adjust her humidity. Oral dryness can be reduced by adjusting humidity setting higher or heated hose lower or by adjusting both settings. Verbal instructions given on how to change humidity and heated hose settings with rationale explaining why to change. Patient advised that chronic oral dryness can affect dental health. Patient's apnea severity and rationale for treatment to reduce apnea, improve sleep quality and reduce cardiovascular and cerebrovascular events was reviewed. 2. Obesity, unspecified. Currently patients BMI is 37.8. Obesity increases the risk of apnea, CPAP pressure requirements and overall health risks especially cardiovascular and diabetes. Thus patient is advised to lose weight. * Change auto CPAP pressure to 10.6-13 cmH2O * Update supply prescription * Notify me if snoring with mask or feeling that the pressure is too much or too little * Attempt to lose weight * Call this office if any problems using CPAP * Return for follow up in 1 year, or sooner if concerns arise Counseling Topics: Spare mask, Weight loss health impact Prescriptions: Device supplies Follow up with Sleep Care in: 1 year Visit Type: In Office Time Spent with Patient (minutes): 20 Provider Statement: I spent 100% of the Face to Face Visit with the patient with greater than 50% spent counseling the patient and coordination of care.
[2023-08-13 11:53] VITALS: BP 128/67; O2SAT 98
== END 2023-08-13 11:26 | disposition home or self-care (01) ==
LOC: SC 11:25
PROVIDERS: ATTEND Nurse Practitioner Family
DX: G47.33 Obstructive sleep apnea (adult) (pediatric) (principal); E66.9 Obesity, unspecified; Z68.37 Body mass index [BMI] 37.0-37.9, adult
CPT/HCPCS: 99213; G0463; 99212

== ENCOUNTER 2023-10-15 10:40 | Outpatient (CLI) | payer MEDICARE, OTHER ==
[2023-10-15 10:54] LABS: BASOPHILS # (AUTO) 0.1 10^3/uL (0.0-0.1); BASOPHILS % (AUTO) 1.6 %; EOSINOPHILS # (AUTO) 0.3 10^3/uL (0.0-0.7); EOSINOPHILS % (AUTO) 5.5 %; HCT - HEMATOCRIT 39.6 % (37.0-47.0); LYMPHOCYTES # (AUTO) 1.5 10^3/uL (1.5-3.5); LYMPHOCYTES % (AUTO) 28.9 %; MEAN CORPUSCULAR HEMOGLOBIN 31.9 pg (27.0-31.0); MEAN CORPUSCULAR HGB CONC 32.8 g/dL (32.0-36.0); MEAN CORPUSCULAR VOLUME 97.3 fL (81.0-99.0); MEAN PLATELET VOLUME 9.1 fL (7.9-10.8); MONOCYTES # (AUTO) 0.4 10^3/uL (0.0-1.0); MONOCYTES % (AUTO) 8.1 %; NEUTROPHILS # (AUTO) 2.8 10^3/uL (1.5-6.6); NEUTROPHILS % (AUTO) 55.5 %; PLT - PLATELET COUNT 256 10^3/uL (130-450); RED BLOOD COUNT 4.07 10^6/uL (4.20-5.40); RED CELL DISTRIBUTION WIDTH 13.4 % (12.0-15.0); WHITE BLOOD COUNT 5.1 x10^3/uL (4.8-10.8)
[2023-10-15 11:08] LABS: ALBUMIN 4.3 g/dL (3.2-5.5); ALBUMIN/GLOBULIN RATIO 1.6 (1.0-2.2); ALKALINE PHOSPHATASE 77 IU/L (42-121); ALT ALANINE AMINOTRANSFERASE 27 IU/L (10-60); AST ASPARTATE AMINOTRANSFERASE 24 IU/L (10-42); BILIRUBIN,TOTAL 0.6 mg/dL (0.2-1.0); BUN - BLOOD UREA NITROGEN 16 mg/dL (6-20); CALCIUM 9.7 mg/dL (8.5-10.3); CARBON DIOXIDE - CO2 31 mmol/L (21-32); CHLORIDE 103 mmol/L (101-111); CHOL/HDL RATIO 2.4 (<4.4); CHOLESTEROL 121 mg/dL; CREATININE 0.7 mg/dL (0.6-1.3); GFR - MDRD 82 (>89); GLUCOSE 111 mg/dL (74-104); HDL CHOLESTEROL 51 mg/dL; LDL CHOLESTEROL,CALCULATED 36 mg/dL; LDL/HDL RATIO 0.7 (<4.4); POTASSIUM 4.1 mmol/L (3.5-4.5); SODIUM 139 mmol/L (135-145); TRIGLYCERIDES 171 mg/dL (48-352); VLDL CHOLESTEROL 34 mg/dL
[2023-10-15 11:23] LABS: THYROID STIMULATING HORMONE 0.85 uIU/mL (0.34-5.60)
== END 2023-10-15 10:41 | disposition home or self-care (01) ==
LOC: LAB 10:40
PROVIDERS: ATTEND Physician Assistant Medical
DX: I10 Essential (primary) hypertension (principal); E78.5 Hyperlipidemia, unspecified; E03.9 Hypothyroidism, unspecified
CPT/HCPCS: 36415; 80053; 80061; 83721; 84443; 85025

== ENCOUNTER 2023-11-08 08:00 | Outpatient (CLI) | payer MEDICARE | END 2023-11-08 23:59 | disposition home or self-care (01) | LOC: LAB.N 08:00 | PROVIDERS: ATTEND Physician Assistant Medical | DX: N39.0 Urinary tract infection, site not specified (principal) | CPT/HCPCS: 87086; 87181 ==

== ENCOUNTER 2023-11-15 12:33 | Outpatient (CLI) | payer MEDICARE ==
--- NOTE | 2023-11-16 08:24 | Ultrasound Report ---
PROCEDURE: Pelvic w/Transvaginal INDICATIONS: THICKENED ENDOMETRIUM TECHNIQUE: Real-time scanning was performed of the pelvic organs, with image documentation. Additional endovagi nal scanning was necessary due to incomplete visualization of the adnexal and endometrial structures by transabdominal scanning. COMPARISON: CT abdomen and pelvis, 08/06/2016. FINDINGS: Uterus: Uterus is anteverted and normal in size at 6.8 x 4.0 x 4.5 cm. The myometrium is heterogene ous. The endometrium is irregular measuring 7 mm. There is a 0.9 x 0.3 x 0.7 cm nodule in the anteri or aspect of the endometrium. There is fluid within the endometrial cavity. Ovaries: The right ovary measures 1.5 x 1.0 x 1.2 cm, with a calculated ovarian volume of 1.0 cc. T he left ovary is not visualized. Question dilation of the right fallopian tube. No adnexal masses ar e seen. Other: No pathologic free abdominal or pelvic fluid. IMPRESSION: 1. Endometrium is thickened and irregular measuring 7 mm. There is a 0.9 x 0.3 x 0.7 cm nodule in the anterior aspect of the endometrium, suggesting a endometrial polyp or mass. There is fluid within th e endometrial cavity. Recommend gynecological consultation. 2. Right ovary is a small, with age appropriate atrophy. Question dilated right fallopian tube. If cl inically indicated, gynecological MRI may be helpful. 3. Nonvisualization of the left ovary. 4. No pathological free fluid in the cul-de-sac or adnexa. Reviewed by: Zena Galaviz MD on 11/16/2023 8:23 AM PST Approved by: Zena Galaviz MD on 11/16/2023 8:23 AM PST Station ID: [id number]
== END 2023-11-15 12:34 | disposition home or self-care (01) ==
LOC: DI 12:33
PROVIDERS: ATTEND Physician Assistant Medical
DX: N85.9 Noninflammatory disorder of uterus, unspecified (principal); R93.89 Abnormal findings on diagnostic imaging of other specified body structures

== ENCOUNTER 2023-12-02 12:57 | Outpatient (CLI) | payer MEDICARE ==
--- NOTE | 2023-12-02 15:53 | Mammography Report ---
BILATERAL DIGITAL SCREENING MAMMOGRAM 3D/2D: 12/02/2023 CLINICAL: Routine screening. Comparison is made to exams dated: 12/23/2017 mammogram, 08/06/2016 mammogram, and 08/13/2015 mammogra m - [facility]. There are scattered areas of fibroglandular density in both breasts (category b / 25%-50% glandular t issue). There is a cluster of focal asymmetries in the left breast at 6 o'clock posterior depth. This is inc reased in size. No other significant masses, calcifications, or other findings are seen in either breast. IMPRESSION: INCOMPLETE: NEEDS ADDITIONAL IMAGING EVALUATION The cluster of focal asymmetries in the left breast is indeterminate. Additional views with possible ultrasound are recommended. Based on the Tyrer Cuzick model (a risk assessment model) the patient's lifetime risk is 2.3% and her 10 year risk is 1.9%. According to the ACR, ACS, and NCCN guidelines, an annual breast MRI exam sarai g with mammogram is recommended if the patients lifetime risk is 20% or greater. This exam was interpreted at Station ID: [id number]. NOTE: For mammograms, a report in lay terms will be sent to the patient. Approximately 15% of breast malignancies will not be visualized mammographically. In the management of a palpable breast mass, a negative mammogram must not discourage biopsy of a clinically suspicious lesion. Electronically Signed By: Parish Serna M.D. lc/:12/02/2023 13:42:21 ACR BI-RADS Category 0: Incomplete 3340F PARENCHYMAL PATTERN: (A) - The breast(s) demonstrate(s) scattered fibroglandular densities. BI-RADS CATEGORY: (0) - 0 Mammo and [place] [id number] Immediate follow-up LATERALITY: (B)
== END 2023-12-02 12:58 | disposition home or self-care (01) ==
LOC: DI 12:57
DX: Z12.31 Encounter for screening mammogram for malignant neoplasm of breast (principal); R92.323 Mammographic fibroglandular density, bilateral breasts; R92.8 Other abnormal and inconclusive findings on diagnostic imaging of breast

== ENCOUNTER 2023-12-30 10:50 | Outpatient (CLI) | payer MEDICARE ==
--- NOTE | 2023-12-31 09:42 | Ultrasound Report ---
LIMITED ULTRASOUND OF LEFT BREAST: 12/30/2023 Comparison is made to exams dated: 12/30/2023 mammogram, 12/02/2023 mammogram, 12/23/2017 mammogram, and 08/06/2016 mammogram - [facility]. Color flow and real-time ultrasound of the left breast 5 o'clock region were performed. Brownlee scale i mages of the real-time examination were reviewed. There is a benign 0.9 cm x 0.5 cm x 0.2 cm oval cyst in the left breast at 5 o'clock posterior depth 10 cm from the nipple. This oval cyst is anechoic. This correlates with mammography findings. [place] r flow imaging demonstrates that there is no vascularity present. IMPRESSION: BENIGN There is no sonographic evidence of malignancy. The 0.9 cm cyst in the left breast is benign. A 1 year screening mammogram is recommended. Exam findings were conveyed to the patient. This exam was interpreted at Station ID: [id number]. Electronically Signed By: Travon Madden M.D. slc/:12/30/2023 11:46:54 Ultrasound BI-RADS: 2 Benign BI-RADS CATEGORY: (2) - 2 Mammogram [id number] 1 year screening LATERALITY: (B)
--- NOTE | 2023-12-31 09:42 | Mammography Report ---
UNILATERAL LEFT DIGITAL DIAGNOSTIC MAMMOGRAM 3D/2D WITH SPOT COMPRESSION: 12/30/2023 CLINICAL: Patient returns today to evaluate a focal asymmetry in the left breast. Comparison is made to exams dated: 12/02/2023 mammogram, 12/23/2017 mammogram, 08/06/2016 mammogram, and 08/13/2015 mammogram - [facility]. There are scattered areas of fibroglandular density in the left breast (category b / 25%-50% glandula r tissue). There is a cluster of focal asymmetries with a circumscribed margin in the left breast at 6 o'clock p osterior depth. No other significant masses or calcifications are seen in the breast. IMPRESSION: INCOMPLETE: NEEDS ADDITIONAL IMAGING EVALUATION The cluster of focal asymmetries in the left breast most likely is a lymph node and is indeterminate. A targeted ultrasound is recommended and will immediately follow. Based on the Tyrer Cuzick model (a risk assessment model) the patient's lifetime risk is 2.3% and her 10 year risk is 1.9%. According to the ACR, ACS, and NCCN guidelines, an annual breast MRI exam sarai g with mammogram is recommended if the patient's lifetime risk is 20% or greater. This exam was interpreted at Station ID: [id number]. NOTE: For mammograms, a report in lay terms will be sent to the patient. Approximately 15% of breast malignancies will not be visualized mammographically. In the management of a palpable breast mass, a negative mammogram must not discourage biopsy of a clinically suspicious lesion. Electronically Signed By: Travon Madden M.D. slc/:12/30/2023 11:30:05 ACR BI-RADS Category 0: Incomplete 3340F PARENCHYMAL PATTERN: (A) - The breast(s) demonstrate(s) scattered fibroglandular densities. BI-RADS CATEGORY: (0) - 0 Ultrasound [id number] Immediate follow-up LATERALITY: (B)
== END 2023-12-30 10:51 | disposition home or self-care (01) ==
LOC: DI 10:50
PROVIDERS: ATTEND Physician Assistant Medical
DX: N60.02 Solitary cyst of left breast (principal); R92.322 Mammographic fibroglandular density, left breast

== ENCOUNTER 2024-03-09 08:00 | Outpatient (CLI) | payer MEDICARE | END 2024-03-09 23:59 | disposition home or self-care (01) | LOC: LAB 08:00 | PROVIDERS: ATTEND Urology | DX: N39.0 Urinary tract infection, site not specified (principal) | CPT/HCPCS: 87077; 87086; 87181 ==

== ENCOUNTER 2024-03-15 13:35 | Outpatient (CLI) | payer MEDICARE ==
--- NOTE | 2024-03-16 07:27 | Ultrasound Report ---
PROCEDURE: Pelvic w/Transvaginal INDICATIONS: THICKENED ENDOMETRIUM TECHNIQUE: Transabdominal/transvaginal ultrasound of the pelvis was obtained. Endovaginal scanning wa s necessary due to incomplete visualization of the adnexal and endometrial structures by transabdomin al scanning. COMPARISON: None. FINDINGS: Uterine size: Uterus measures 8.0 x 4.3 x 5.8 cm, and is anteverted. Myometrium: The myometrium is homogeneous. Endometrium: The endometrium measures 4.4 mm in combined thickness, and shows irregularity with sugg estion of nodularity, similar to prior exam. Right ovary: Nonvisualized Left ovary: Nonvisualized Other: No pathologic free abdominal or pelvic fluid. IMPRESSION: Although the endometrium is slightly overall decreased in thickness, endometrial nodularity persists. Advise MEDICAL OFFICE COORDINATOR consult and/or saline infusion sonohysterogram Reviewed by: Jair Ramos MD on 03/16/2024 6:26 AM KEILA Approved by: Jair Ramos MD on 03/16/2024 6:26 AM KEILA Station ID: [id number]
== END 2024-03-15 13:36 | disposition home or self-care (01) ==
LOC: DI 13:35
PROVIDERS: ATTEND Obstetrics & Gynecology
DX: N85.00 Endometrial hyperplasia, unspecified (principal); N85.8 Other specified noninflammatory disorders of uterus

== ENCOUNTER 2024-04-27 08:26 | Outpatient (CLI) | payer MEDICARE ==
[2024-04-27 08:50] LABS: ALBUMIN 4.1 g/dL (3.2-5.5); ALBUMIN/GLOBULIN RATIO 1.5 (1.0-2.2); ALKALINE PHOSPHATASE 81 IU/L (42-121); ALT ALANINE AMINOTRANSFERASE 23 IU/L (10-60); AST ASPARTATE AMINOTRANSFERASE 23 IU/L (10-42); BILIRUBIN,TOTAL 0.4 mg/dL (0.2-1.0); BUN - BLOOD UREA NITROGEN 18 mg/dL (6-20); CALCIUM 9.7 mg/dL (8.5-10.3); CARBON DIOXIDE - CO2 31 mmol/L (21-32); CHLORIDE 104 mmol/L (101-111); CHOL/HDL RATIO 2.4 (<4.4); CHOLESTEROL 138 mg/dL; CREATININE 0.7 mg/dL (0.6-1.3); GFR - MDRD 82 (>89); GLUCOSE 121 mg/dL (74-104); HDL CHOLESTEROL 58 mg/dL; LDL CHOLESTEROL,CALCULATED 45 mg/dL; LDL/HDL RATIO 0.8 (<4.4); POTASSIUM 4.1 mmol/L (3.5-4.5); SODIUM 140 mmol/L (135-145); TOTAL PROTEIN 6.8 g/dL (6.4-8.9); TRIGLYCERIDES 175 mg/dL (48-352); VLDL CHOLESTEROL 35 mg/dL
== END 2024-04-27 08:27 | disposition home or self-care (01) ==
LOC: LAB 08:26
PROVIDERS: ATTEND Physician Assistant Medical
DX: E78.5 Hyperlipidemia, unspecified (principal)
CPT/HCPCS: 36415; 80053; 80061; 83721

== ENCOUNTER 2024-06-29 13:05 | Outpatient (CLI) | payer MEDICARE ==
--- NOTE | 2024-06-29 14:44 | DEXA Report ---
PROCEDURE: Dexa Spine and/or Hip INDICATIONS: POST MENOPAUSAL TECHNIQUE: Dual energy x-ray absorptiometry (DXA) was performed on a Lightswitch System. Regions measur ed are the AP Spine, femoral neck, and if needed forearm. COMPARISON: 08/21/2016 FINDINGS: Lumbar Spine: Bone Mineral Density: 1.284 g/cm/cm,T score: 0.9. Since the most recent prior study, there has been a statistically significant increase in bone mineral density by 6.9 percent. Left Femoral Neck: Bone Mineral Density: 0.852 g/cm/cm, T score: -1.3. Left Hip: Bone Mineral Density: 0.981 g/cm/cm,T score: -0.2. FRAX risk factors: 10 year risk of major osteoporotic fracture: 18.4% major osteoporotic fracture = hip, clinical vertebral, proximal humerus, distal forearm 10 year risk of hip fracture: 3% (T score greater or equal to -1.0: NORMAL) (T score from -1.1 to -2.4: OSTEOPENIA) (T score less than or equal to -2.5 to: OSTEOPOROSIS) Impression: By WHO criteria, this patient has low bone density (osteopenia). Interval statistical increase in bone mineral density of the lumbar spine. Patients with diagnosis of osteoporosis or osteopenia should have regular bone mineral density assess ment. For those eligible for Medicare, routine testing is allowed once every 2 years. Testing frequ ency can be increased for patients who have rapidly progressing disease or for those who are receivin g medical therapy to restore bone mass. Reviewed by: Jh Huizar MD on 06/29/2024 2:43 PM PDT Approved by: Jh Huizar MD on 06/29/2024 2:43 PM PDT Station ID: [id number]
== END 2024-06-29 13:06 | disposition home or self-care (01) ==
LOC: DI 13:05
PROVIDERS: ATTEND Physician Assistant Medical
DX: M85.88 Other specified disorders of bone density and structure, other site (principal); Z78.0 Asymptomatic menopausal state